=== PATIENT | male | born 1960 | race Caucasian/White ===

== ENCOUNTER → 2020-03-24 06:51 | Outpatient (CLI) | payer MEDICAID, SELFPAY ==
[2020-03-24 07:08] LABS: Hematocrit 49.9 % (40-54); Hemoglobin 16.3 g/dL (13.0-16.5); Mean Corp Hgb Conc 32.7 g/dL (32-36); Mean Corpuscular Volume 94.9 fL (80-94); Mean Platelet Vol. 9.3 fl (6.2-12.0); Platelet Count 230 K/mm3 (150-450); RBC Distribution Width CV 13.2 % (11.6-14.6); RBC Distribution Width SD 45.5 fl (35.1-43.9); Red Blood Count 5.26 M/mm3 (4.6-6.2); White Blood Count 8.5 K/mm3 (4.4-11.0)
[2020-03-24 07:36] LABS: AST(SGOT) 17 U/L (15-37); Alanine Aminotransfer ALT/SGPT 24 U/L (16-61); Albumin, Serum 3.6 g/dL (3.2-5.0); Alkaline Phosphatase 103 U/L (45-117); Anion Gap 4 (5-15); BUN 27 mg/dL (7-18); BUN/Creat Ratio 19.7 RATIO (10-20); Calcium,Total 8.8 mg/dL (8.5-10.1); Chloride 105 mmol/L (98-107); Cholesterol 177 mg/dL (200); Creatinine, Serum 1.37 mg/dL (0.70-1.30); EST Glomerular Filtration Rate 56 mL/min (>60); Est Glom Filt Rate - Afr Amer 68 mL/min (>60); Globulin 3.7 g/dL (2.2-4.2); Glucose 91 mg/dL (74-106); High Density Lipoprotein 56 mg/dL; Potassium 4.2 mmol/L (3.5-5.1); Protein, Total 7.3 g/dL (6.4-8.2); Sodium Level 138 mmol/L (136-145); Triglycerides 154 mg/dL; Very Low Density Lipoprotein 31 mg/dL (5-40)
== END ==
PROVIDERS: PCP Family Medicine; Referring Provider Nurse Practitioner Family; Visit Provider Nurse Practitioner Family
DX: I25.10 Atherosclerotic heart disease of native coronary artery without angina pectoris (principal); E78.2 Mixed hyperlipidemia; Z72.0 Tobacco use
CPT/HCPCS: 36415; 80053; 80061; 85027

== ENCOUNTER → 2020-04-03 09:22 | Outpatient (CLI) | payer MEDICAID, SELFPAY ==
[2016-01-11 15:18] VITALS: BMI 29.5
[2020-04-03 10:19] LABS: Erythrocyte Sedimentation Rate 11 mm/hr (0-20)
[2020-04-03 10:25] LABS: CRP 8.68 mg/L (0.0-3.0); Rheumatoid Factor < 10.0 IU/mL (<15)
[2020-04-05 08:57] LABS: CCP IgG Antibodies 5 units (0-19)
== END ==
PROVIDERS: PCP Family Medicine
DX: M06.4 Inflammatory polyarthropathy (principal)
CPT/HCPCS: 36415; 85652; 86140; 86200; 86431

== ENCOUNTER 2020-08-26 18:57 | Emergency (ER) | payer MEDICAID, SELFPAY ==
[2020-08-26 18:58] VITALS: BP 138/85; PULSE 98; RESP 18; TEMP 36.8; O2SAT 97; BMI 30.5
--- NOTE | 2020-08-26 19:44 | EDS_ITS ---
HPI History of Present Illness Chief Complaint: Other, Pain/Inj Detail of Chief Complaint: Multiple bee stings with allergic reaction that occurred yesterday. Informant: patient and spouse/S.O. Onset/Context/Timing Onset: Yesterday Context: Sudden Onset Timing: Continuous Current Severity: Mild Maximum Severity: Mild Narrative Narrative: 59-year-old male history of cardiac disease with cardiac stents in hypertension. Patient was stung by multiple bees yesterday on the back of his scalp, neck and left arm. He had allergic reaction since that time with swelling and itching. No trouble breathing or swallowing. No lip or tongue swelling. This occurred yesterday around 8 AM. Prior similar symptoms: Yes Recent Illness/Hospitalization: No PFSH PFSH Medical History Arthritis High cholesterol HTN (hypertension) Home Medications aspirin 81 mg PO DAILY 01/11/16 [History Last Taken 01/11/16 08:00] lisinopril 10 mg PO DAILY 01/11/16 [History Last Taken 01/11/16 08:00] hydroxychloroquine 200 mg PO DAILY 08/26/20 [History Last Taken Unknown] lovastatin 40 mg PO DAILY 08/26/20 [History Last Taken Unknown] prednisone 2.5 mg PO DAILY 08/26/20 [History Last Taken Unknown] prednisone 40 mg PO DAILY 5 Days #10 tab 08/26/20 [Rx Last Taken Unknown] Allergy/AdvReac Type Severity Reaction Status Date / Time No Known Allergies Allergy Verified 08/26/20 18:59 Social History Smoking Status: Current every day smoker tobacco type: cigarettes ROS ROS ED ROS Narrative Denies any recent illness. Review of Systems ROS Unobtainable: Denies due to encephalopathy Constitutional Constitutional ED: Denies chills or fever(s) Eyes Eyes: Denies change in vision ENT ENT ED: Denies ear pain or sore throat Cardiovascular Cardiovascular: Denies chest pain Respiratory/Chest Respiratory/Chest: Denies cough or dyspnea Gastrointestinal Gastrointestinal: Denies abdominal pain, diarrhea, nausea or vomiting Genitourinary Genitourinary ED: Denies dysuria Musculoskeletal Musculoskeletal: Denies myalgias Integumentary Reports rash Neurologic Neurologic: Denies headache(s) Psychiatric Psychiatric: Denies depression Endocrine Endocrinology: Denies polyuria Allergic/Immunologic Allergic/Immunologic ED: Denies urticaria EXAM Physical Exam Narrative Exam Narrative: Well-appearing 59-year-old male no acute distress vital signs stable afebrile. HEENT exam shows a local allergic rash no bee sting posterior scalp and base of his neck. With redness and blistering. No infection. Also on the posterior aspect of his left arm. Tongue and lips are unremarkable. No trouble swallowing or breathing. Lungs are clear to auscultation bilaterally. No wheezing. No distress. Heart regular rate and rhythm. Abdomen soft and nontender. Otherwise exam unremarkable. Const Vital Signs: 08/26/20 18:58 Temperature 98.2 F Temperature Source Temporal Pulse Rate 98 Respiratory Rate 18 Blood Pressure 138/85 H Blood Pressure Mean 102 Pulse Ox 97 Oxygen Delivery Method Room Air Positive well nourished and well developed General Appearance ED: well developed and NAD HEENT Reports moist mucous membranes Negative for trauma or tenderness Eyes PERRL and EOMs intact bilaterally Neck no lymphadenopathy, supple and no JVD Chest Wall inspection of chest normal and palpation of chest normal Resp normal respiratory effort and clear to auscultation bilaterally Auscultation: Negative for wheezes Cardio regular rate, regular rhythm, S1 normal heart sound, S2 normal heart sound and no murmurs GI normal to inspection, nondistended, normoactive bowel sounds, non-tender, non- distended and no masses Auscultation: normoactive bowel sounds Palpation: soft Back/Spine no CVA tenderness Extremity normal to inspection Extremity Narrative: Normal inspection with normal range of motion except low allergic reaction to the posterior tricep upper arm area from bee stings. Consistent with local allergic reaction. General Extremety ED: Yes edema General Extremity: edema Neuro oriented x3 Sensorium / Orientation: alert Motor Exam: strength 5/5 throughout Psych mental status grossly normal Skin no wounds Rashes: rashes noted MDM MDM MDM Narrative Medical decision making narrative: Patient with multiple bee stings with local allergic reactions. He will be treated with prednisone. And Benadryl as needed. Discharge Plan Triage Chief Complaint: Other, Pain/Inj ED Provider: Rd Barrientos Dx/Rx/DC Orders Clinical Impression: Allergic reaction to bee sting Instructions: ED BEE STING General Allergic Rxn Prescriptions: New prednisone 20 mg tablet 40 mg PO DAILY 5 Days Qty: 10 RF: 0 No Action aspirin 81 MG tablet 81 mg PO DAILY RF: 0 lisinopril 10 MG tablet 10 mg PO DAILY RF: 0 lovastatin 40 mg tablet 40 mg PO DAILY RF: 0 hydroxychloroquine 200 mg tablet 200 mg PO DAILY RF: 0 prednisone 2.5 mg tablet 2.5 mg PO DAILY RF: 0 Primary Care Provider: Evon Ochoa Referrals: Evon Ochoa, [Primary Care Provider] - 1 Week if not improving Activity Restrictions/Additional Instructions: Ice to the area. Elevate left arm to decrease swelling. Prednisone 40 g a day for the next 5 days. Benadryl as needed for itching. This should get better as the reaction resolved and the swelling goes down. Follow-up if getting worse. Disposition Disposition: Home, Self Care
[2020-08-26] MEDS: predniSONE 20 MG Tablet 40 MG PO (19:53)
== END 2020-08-26 20:00 | disposition home or self-care (01) ==
PROVIDERS: Emergency Provider Emergency Medicine; PCP Family Medicine
DX: T63.441A Toxic effect of venom of bees, accidental (unintentional), initial encounter (principal); F17.210 Nicotine dependence, cigarettes, uncomplicated; E78.00 Pure hypercholesterolemia, unspecified; I10 Essential (primary) hypertension; M19.90 Unspecified osteoarthritis, unspecified site; Z79.82 Long term (current) use of aspirin; Z79.52 Long term (current) use of systemic steroids; Z95.5 Presence of coronary angioplasty implant and graft; Z79.899 Other long term (current) drug therapy
CPT/HCPCS: 99283

== ENCOUNTER 2021-03-09 09:03 | Outpatient (CLI) | payer MEDICAID, SELFPAY ==
[2021-03-09 09:46] LABS: Hemoglobin 16.3 g/dL (13.0-16.5); Mean Corp Hgb Conc 32.6 g/dL (32-36); Mean Corpuscular Hgb 30.1 pg (27.0-32.0); Mean Corpuscular Volume 92.4 fL (80-94); Mean Platelet Vol. 9.6 fl (6.2-12.0); Platelet Count 234 K/mm3 (150-450); RBC Distribution Width CV 12.9 % (11.6-14.6); RBC Distribution Width SD 43.7 fl (35.1-43.9); Red Blood Count 5.41 M/mm3 (4.6-6.2); White Blood Count 7.5 K/mm3 (4.4-11.0)
[2021-03-09 10:26] LABS: AST(SGOT) 16 U/L (15-37); Alanine Aminotransfer ALT/SGPT 28 U/L (16-61); Albumin, Serum 3.6 g/dL (3.2-5.0); Alkaline Phosphatase 110 U/L (45-117); Anion Gap 3 (5-15); BUN 20 mg/dL (7-18); BUN/Creat Ratio 17.1 RATIO (10-20); Calcium,Total 8.9 mg/dL (8.5-10.1); Chloride 109 mmol/L (98-107); Cholesterol 162 mg/dL (200); Creatinine, Serum 1.17 mg/dL (0.70-1.30); EST Glomerular Filtration Rate 67 mL/min (>60); Est Glom Filt Rate - Afr Amer 81 mL/min (>60); Globulin 3.6 g/dL (2.2-4.2); Glucose 90 mg/dL (74-106); High Density Lipoprotein 54 mg/dL; Potassium 4.6 mmol/L (3.5-5.1); Protein, Total 7.2 g/dL (6.4-8.2); Sodium Level 139 mmol/L (136-145); Triglycerides 102 mg/dL; Very Low Density Lipoprotein 20 mg/dL (5-40)
== END 2021-03-09 23:59 | disposition short-term general hospital (02) ==
LOC: LAB 09:06
PROVIDERS: PCP Family Medicine; Visit Provider Nurse Practitioner Family
DX: I25.10 Atherosclerotic heart disease of native coronary artery without angina pectoris (principal); E78.5 Hyperlipidemia, unspecified
CPT/HCPCS: 36415; 80053; 80061; 85027

== ENCOUNTER → 2022-05-03 | Outpatient (CLI) | payer MEDICAID, SELFPAY ==
--- NOTE | 2022-05-03 10:22 | NEURO_ITS ---
NCS and/or EMG Patient Report Ordering Doctor: Arjun Prescott DATE OF SERVICE: 05/03/22 Indication: Approximately 12 years of intermittent sensory changes in the first three digits of both hands (right greater than left). He states that he will wake up from sleep with his hands feeling swollen. Findings: Nerve conduction studies were performed in the right and left upper extremities. The right median motor study recording the abductor pollicis brevis showed a normal amplitude, prolonged distal latency and borderline conduction velocity. The right ulnar motor study recording the abductor digiti minimi showed a normal amplitude, normal distal latency and normal conduction velocity. No conduction block or focal slowing was present across the elbow. The right median sensory response recording digit two showed a borderline amplitude, normal latency and mildly slowed conduction velocity. The right ulnar sensory response recording digit five showed a normal amplitude, prolonged latency and slowed conduction velocity. The right radial sensory response recording over the extensor snuff box showed a borderline amplitude, normal latency and mildly slowed conduction velocity. The left median motor study recording the abductor pollicis brevis showed a normal amplitude, normal distal latency and slowed conduction velocity. The left ulnar motor study recording the abductor digiti minimi showed a normal amplitude, distal latency and conduction velocity. No conduction block or focal slowing was present across the elbow. The left median sensory response recording digit two showed a borderline amplitude, normal latency and borderline conduction velocity. The left ulnar sensory response recording digit five showed a normal amplitude, prolonged latency and slowed conduction velocity. The left radial sensory response recording over the extensor snuff box showed a borderline amplitude, normal latency and mildly slowed conduction velocity. Right median-ulnar lumbrical / interosseous motor latencies showed a prolonged median latency compared to the ulnar. Left median-ulnar lumbrical / interosseous motor latencies showed a prolonged median latency compared to the ulnar. Needle EMG of the right upper extremity and cervical paraspinal muscles was performed. No denervation was seen in any muscle. All motor unit morphology, activation and recruitment patterns were normal. Needle EMG of the left upper extremity was omitted given the paucity of findings in the more symptomatic limb. Impression: This is an abnormal and complex study. There is electrophysiologic evidence of mild median neuropathy across the right wrist. The pathophysiology is demyelinating. This finding is compatible with the clinical diagnosis of carpal tunnel syndrome. There were borderline changes on the left only by internal comparison studies. In addition, the prolonged ulnar sensory responses across the risk are suggestive, but not diagnostic of impingement at Guyon's canal. This should be interpreted with caution as it would not be expected to produce the patient's current complaints. 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 This possibility was not explored further as it was not the indication for the study. Gurinder Baugh D.O. Multi Select Codes Neurology Neurology Interp Codes: 31614-64 Musc test done w/n test comp (interp) and 21336-06 [facility] cnd test 13/> studies (interp)
== END | disposition home or self-care (01) ==
LOC: PSN 08:56
PROVIDERS: PCP Family Medicine
DX: G56.03 Carpal tunnel syndrome, bilateral upper limbs (principal)
CPT/HCPCS: 95886; 95913

== ENCOUNTER 2022-05-12 09:51 | Day surgery (SDC) | payer MEDICAID, SELFPAY ==
--- NOTE | 2022-05-12 10:00 | HP.PCM_ITS ---
HPI - General General Date of Admission: 05/12/22 Date of Service: 05/12/22 Chief Complaint: Screening colonoscopy HPI Narrative ANI PENNINGTON, is a 61 M who presents today for screening colonoscopy. He has not had a colonoscopy in the past. He has a past medical history of CAD, dyslipidemia, hypertension and tobacco dependence. He is not having any chest pain or shortness of breath. He denied of any nausea vomit diarrhea. He denied of any weakness. Overall he is in very good health. All 16 review of systems are negative except as per positive mentioned HPI. [facility] Medical History Acute chest pain Arthritis Back pain Cardiology follow-up encounter Easy bruising Excessive bleeding High cholesterol History of echocardiogram History of heart attack History of steroid therapy History of stress test HTN (hypertension) Smoker Wears dentures Wears glasses Home Medications aspirin 81 mg tablet,delayed release 81 mg PO DAILY 01/11/16 [History Last Taken 01/11/16 08:00] lisinopril 10 mg tablet 10 mg PO DAILY 01/11/16 [History Last Taken 01/11/16 08:00] hydroxychloroquine 200 mg tablet 200 mg PO BID 08/26/20 [History Last Taken Unknown] lovastatin 40 mg tablet 40 mg PO DAILY 08/26/20 [History Last Taken Unknown] prednisone 2.5 mg tablet 2.5 mg PO DAILY 08/26/20 [History Last Taken Unknown] duloxetine 60 mg capsule,delayed release (Cymbalta) 60 mg PO DAILY 02/23/22 [History Last Taken Unknown] multivitamin 1 tab PO DAILY 02/23/22 [History Last Taken Unknown] Allergy/AdvReac Type Severity Reaction Status Date / Time No Known Allergies Allergy Verified 05/12/22 10:03 Surgical History History of cardiac catheterization History of heart artery stent Hx of surgical amputation of finger Stented coronary artery Social History (Updated 02/23/22 @ 08:49 by Jessie Ryan) household members: spouse current occupational status: employed Smoking Status: Current every day smoker tobacco type: cigars ROS Review of Systems ROS Unobtainable: other Constitutional Constitutional: Denies fatigue, fever(s), poor appetite, weight gain or weight loss ENT HEENT: Denies mouth lesions Cardiovascular Cardiovascular: Denies abdominal bloating, abdominal edema or abdominal pain Respiratory/Chest Respiratory/Chest: Denies change in mental status, change in phlegm color, chest congestion or chest tightness Gastrointestinal Gastrointestinal: Denies belching, bloating, change in bowel habits, change in stool character, chewing difficulty, coffee ground emesis, constipation, cramping, diarrhea, dyspepsia, dysphagia, early satiety, excessive flatus, fecal incontinence, heartburn, hematemesis, hematochezia, hemorrhoids, loose stools, melena, nausea, odynophagia, rectal bleeding, tenesmus, vomiting or weight changes Genitourinary Genitourinary: Denies abdominal discomfort, burning urination or itching Musculoskeletal Musculoskeletal: Reports as per HPI; Denies muscle weakness or myalgias Integumentary Integumentary: Denies jaundice Neurologic Neurologic: Denies lack of coordination or weakness Psychiatric Psychiatric: Denies confusion, depression, memory loss, mood swings, paranoia or suicidal ideation Endocrine Endocrinology: Denies systems reviewed and no addt'l complaints, except as documented Hematologic/Lymphatic Hematologic/Lymphatic: Denies anemia, easy bleeding, easy bruising or lymphadenopathy Allergic/Immunologic Allergic/Immunologic: Denies systems reviewed and no addt'l complaints, except as documented Vital Signs Vital Signs Vital Signs: Weight Weight: 194 lb 0.108 oz Body Mass Index (BMI) 29.5 Physical Exam Const alert General Appearance: cooperative Orientation / Consciousness: oriented to person HEENT hearing grossly normal bilaterally Head and Scalp: normal to inspection Face and Sinus: face symmetric Nose: external nose normal Mouth: oral and palatal mucosa normal Eyes conjunctivae normal General Eye: normal appearance of both eyes Neck full ROM General: normal visual inspection Lymph Lymphatic: no lymphadenopathy noted Chest inspection of chest normal and palpation of chest normal Chest: symmetrical chest wall rise Resp normal respiratory effort Effort and Inspection: able to speak in complete sentences Cardio regular rate GI non-distended Percussion: normal to percussion Rectal Exam: deferred Neuro Speech: speech normal Gait (Neuro): normal gait Assessment & Plan Assessment/Plan (1) Encounter for screening for malignant neoplasm of colon: PLAN: He will undergo screening colonoscopy. He was explained alternatives, risk, benefits include not withstanding bleeding, infection, sepsis, perforation, need for emergent urgent . Have an ASA of 1.
[2022-05-12 10:19] VITALS: BP 123/74; PULSE 91; RESP 16; TEMP 36.3; O2SAT 96; BMI 29.5
[2022-05-12] MEDS: Lactated Ringers 1,000 ML 15 ML IV (10:19)
--- NOTE | 2022-05-12 11:15 | COLBX_PTH ---
PATIENT: ANI PENNINGTON LOC: EN U#:[id number] AGE/SX: 61/M ROOM: RE05/12/[address]: Dr. Gurdeep Chao DO : 1960 BED: DIS: 05/12/2022 SPEC #: [id number] RECD: 05/12/22 13:47 STATUS: JAMISON REDiann #: [id number] JALEESA: 05/12/22 11:[address]: Gurdeep Chao DEPT: SURGICAL PATHOLOGY RECD BY: Aleta Campbell ENTERED: 05/13/22 10:42 SP TYPE: COLON BX MARYANNE DR: DO Kim Sanford Tissues: A - Sigmoid colon biopsy B - Descending colon Procedures: Surgery Specimen Level IV HEADER OPERATION: Colonoscopy ? open access (MAC), biopsies, polypectomy PRE-OP DIAGNOSIS: Screening TISSUE SUBMITTED: A ? Sigmoid polyp, B ? Descending polyp biopsy MICROSCOPIC DIAGNOSIS A. Sigmoid polyp, polypectomy: Fragments of tubular adenoma. B. Descending colon polyp, biopsy: Fragments of tubular adenoma. SJ:teo 05/14/2022 MICROSCOPIC DESCRIPTION Slides are reviewed. GROSS DESCRIPTION A - Received in fixative is one container labeled with the patient's name and designated sigmoid polyp. The specimen consists of two irregular fragments of light chase soft tissue that in aggregate measure 0.8 x 0.6 x 0.2 cm. The specimen is totally submitted in one cassette. B - Received in fixative is one container labeled with the patient's name and designated descending polyp biopsy. The specimen consists of two irregular fragments of light chase soft tissue that in aggregate measure 0.8 x 0.5 x 0.1 cm. The specimen is totally submitted in one cassette. / AM:teo 05/13/2022 TC:1 CPT: 25782 x2
[2022-05-12 12:25] VITALS: BP 107/70; BP 123/74; PULSE 81; RESP 16; TEMP 36.2; O2SAT 98
--- NOTE | 2022-05-12 12:25 | OP.COLON_ITS ---
Patient Name: Miguel Valentine Procedure Date: 05/12/2022 11:57 AM Date of : 1960 Age: 61 Procedure: Colonoscopy Indications: Screening for colorectal malignant neoplasm Providers: Gurdeep Chao DO Medicines: Monitored Anesthesia Care Patient Profile: This is a 61 year old male. Refer to note in patient chart for documentation of history and physical. Last Colonoscopy: date unknown. Unable to locate last colonoscopy report. Complications: No immediate complications. Procedure: Pre-Anesthesia Assessment: - Prior to the procedure, a History and Physical was performed, and patient medications and allergies were reviewed. The risks and benefits of the procedure and the sedation options and risks were discussed with the patient. All questions were answered and informed consent was obtained. Patient identification and proposed procedure were verified by the physician. Mental Status Examination: normal. Prophylactic Antibiotics: The patient does not require prophylactic antibiotics. Prior Anticoagulants: The patient has taken no previous anticoagulant or antiplatelet agents. After reviewing the risks and benefits, the patient was deemed in satisfactory condition to undergo the procedure. The anesthesia plan was to use minimal sedation / analgesia (anxiolysis). Immediately prior to administration of medications, the patient was re-assessed for adequacy to receive sedatives. The heart rate, respiratory rate, oxygen saturations, blood pressure, adequacy of pulmonary ventilation, and response to care were monitored throughout the procedure. The physical status of the patient was re-assessed after the procedure. After I obtained informed consent, the scope was passed under direct vision. Throughout the procedure, the patient's blood pressure, pulse, and oxygen saturations were monitored continuously. The Colonoscope was introduced through the anus and advanced to the terminal ileum. Scope In: 12:07:50 PM Scope Withdrawal Time 0 hours 7 minutes 28 seconds Scope Out: 12:20:19 PM Total Procedure Duration Time 0 hours 12 minutes 29 seconds Findings: The perianal and digital rectal examinations were normal. Five sessile polyps were found in the sigmoid colon and descending colon. The polyps were 1 to 2 mm in size. These polyps were removed with a hot snare. Resection and retrieval were complete. Verification of patient identification for the specimen was done. Estimated blood loss was minimal. Multiple small and large-mouthed diverticula were found in the recto-sigmoid colon and sigmoid colon. Impression: - Three 1 to 2 mm polyps in the sigmoid colon and in the descending colon, removed with a hot snare. Resected and retrieved. - Diverticulosis in the recto-sigmoid colon and in the sigmoid colon. Recommendation: - Discharge patient to home. - Resume previous diet. - Continue present medications. - Await pathology results. - Repeat colonoscopy in 3 years for surveillance. Procedure Code(s): --- Professional --- 70864, Colonoscopy, flexible; with removal of tumor(s), polyp(s), or other lesion(s) by snare technique CPT copyright 2017 [employer]. All rights reserved. The codes documented in this report are preliminary and upon iron launder operator review may be revised to meet current compliance requirements. Gurdeep Chao DO 05/12/2022 12:24:57 PM This report has been signed electronically. Number of Addenda: 0 Note Initiated On: 05/12/2022 11:57 AM
--- NOTE | 2022-05-12 12:25 | OP.CCLET_ITS ---
05/12/2022 Evon Waller Do Re : Colonoscopy procedure for Miguel Valentine Dear Sridhar This procedure was performed on Thursday, May 12, 2022. My impressions and recommendations are as follows: Impressions : - Three 1 to 2 mm polyps in the sigmoid colon and in the descending colon, removed with a hot snare. Resected and retrieved. - Diverticulosis in the recto-sigmoid colon and in the sigmoid colon. Recommendations : - Discharge patient to home. - Resume previous diet. - Continue present medications. - Await pathology results. - Repeat colonoscopy in 3 years for surveillance. My findings are described in the full procedure note, which is enclosed. If I can be of further assistance, please feel free to contact me at . Sincerely, Gurdeep Chao, 05/12/2022 12:24:57 PM This report has been signed electronically.
[2022-05-12 12:30] VITALS: BP 123/74; BP 139/80; PULSE 80; RESP 16; O2SAT 97
[2022-05-12 12:35] VITALS: BP 123/74; BP 127/76; PULSE 77; RESP 16; O2SAT 98
[2022-05-12 12:40] VITALS: BP 123/74; BP 152/77; PULSE 77; RESP 16; TEMP 36.2; O2SAT 99
[2022-05-12 13:00] VITALS: BP 123/74
== END 2022-05-12 13:10 | disposition home or self-care (01) ==
LOC: EN 09:51 → AC 09:54
PROVIDERS: PCP Family Medicine; Visit Provider Internal Medicine Gastroenterology
PROC: 0DJD8ZZ Inspection of Lower Intestinal Tract, Via Natural or Artificial Opening Endoscopic (ICD-10-PCS; CPT 45378; principal; 2022-05-12 11:10)
DX: Z12.11 Encounter for screening for malignant neoplasm of colon (principal); D12.4 Benign neoplasm of descending colon; D12.5 Benign neoplasm of sigmoid colon; K57.30 Diverticulosis of large intestine without perforation or abscess without bleeding; I10 Essential (primary) hypertension; E78.00 Pure hypercholesterolemia, unspecified; F17.290 Nicotine dependence, other tobacco product, uncomplicated; Z95.5 Presence of coronary angioplasty implant and graft; Z79.82 Long term (current) use of aspirin; Z79.899 Other long term (current) drug therapy
CPT/HCPCS: 45385; 88305; J7120; J2405

== ENCOUNTER → 2022-11-20 | Outpatient (CLI) | payer MEDICAID, SELFPAY ==
[2022-11-20 08:00] LABS: Absolute Lymphocyte Count 1.28 X10^3/uL (0.83-4.51); Absolute Neutrophil Count 4.8 X10^3/uL (2.0-7.7); Basophil# 0.06 X10^3/uL; Basophil% 0.8 % (0-1); Eosinophil# 0.27 X10^3/uL; Eosinophils% 3.8 % (0-5); Hematocrit 50.7 % (40-54); Hemoglobin 16.4 g/dL (13.0-16.5); Lymphocyte # 1.28 X10^3/ul (0.83-4.51); Mean Corp Hgb Conc 32.3 g/dL (32-36); Mean Corpuscular Hgb 31.3 pg (27.0-32.0); Mean Corpuscular Volume 96.8 fL (80-94); Mean Platelet Vol. 9.5 fl (6.2-12.0); Monocyte# 0.65 X10^3/uL; Monocyte% 9.1 % (0-10); NRBC Flagged by Analyzer 0 % (0-5); Neutrophil # 4.84 X10^3/uL (2.7-7.7); Neutrophil % 67.9 % (47-70); Platelet Count 237 K/mm3 (150-450); RBC Distribution Width CV 12.8 % (11.6-14.6); Red Blood Count 5.24 M/mm3 (4.6-6.2); White Blood Count 7.1 K/mm3 (4.4-11.0)
[2022-11-20 08:28] LABS: AST(SGOT) 12 U/L (15-37); Alanine Aminotransfer ALT/SGPT 22 U/L (16-61); Albumin, Serum 3.6 g/dL (3.2-5.0); Alkaline Phosphatase 101 U/L (45-117); Anion Gap 2 (5-15); BUN 12 mg/dL (7-18); BUN/Creat Ratio 10.3 RATIO (10-20); Calcium,Total 8.9 mg/dL (8.5-10.1); Chloride 107 mmol/L (98-107); Cholesterol 161 mg/dL (200); Creatinine, Serum 1.17 mg/dL (0.70-1.30); EST Glomerular Filtration Rate 67 mL/min (>60); Est Glom Filt Rate - Afr Amer 81 mL/min (>60); Globulin 3.5 g/dL (2.2-4.2); Glucose 98 mg/dL (74-106); High Density Lipoprotein 60 mg/dL; PSA,Total - Annual Screen 1.78 ng/mL (0.00-4.00); Potassium 5.1 mmol/L (3.5-5.1); Protein, Total 7.1 g/dL (6.4-8.2); Sodium Level 138 mmol/L (136-145); Thyroid Stim Hormone (TSH) 1.72 uIU/mL (0.358-3.74); Triglycerides 93 mg/dL; Very Low Density Lipoprotein 19 mg/dL (5-40)
[2022-11-26 10:09] LABS: Testosterone, % Free 2.47 % (1.50-4.20); Testosterone, Free 15.54 ng/dL (5.00-21.00); Testosterone, Total 629 ng/dL (264-916)
== END | disposition home or self-care (01) ==
PROVIDERS: PCP Family Medicine; Referring Provider Nurse Practitioner Family; Visit Provider Nurse Practitioner Family
DX: I10 Essential (primary) hypertension (principal); N52.9 Male erectile dysfunction, unspecified; Z12.5 Encounter for screening for malignant neoplasm of prostate
CPT/HCPCS: 36415; 80053; 80061; 84153; 84402; 84403; 84443; 85025; G0103

== ENCOUNTER → 2023-04-29 | Outpatient (CLI) | payer MEDICAID, SELFPAY ==
--- OUTSIDE RECORDS SUMMARY | 2023-04-29 07:39 | XMS RPT_ITS | CCD ---
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 Primary Care Unavailable ALFONZO NO Attending Unavailable LUDMILA [place] JR. Primary Care Unavailable RIZWANA MAHMOOD Attending Unavailable RIZWANA MAHMOOD Referring Unavailable IMCA Primary Care Unavailable RIZWANA MAHMOOD Attending Unavailable [facility] Referring Unavailable [facility]CA Primary Care Unavailable RIZWANA MAHMOOD Attending Unavailable [facility] Referring Unavailable [facility] Primary Care Unavailable Beth Guzman Primary Care Provider Beth Guzman Primary Care Provider Beth Guzman DO Primary Care Provider Beth Guzman DO Primary Care Provider Beth Guzman DO Primary Care Provider Beth Guzman DO Primary Care Provider Beth Guzman DO Primary Care Provider BETH GUZMAN Primary Care Unavailable MARIYA SARKAR Attending Unavailable Medications Current Medications Medication Drug Class(es) Dates Sig (Normalized) Sig (Original) DULoxetine 60 mg delayed release oral capsule (20 sources) Serotonin and Norepinephrine Reuptake Inhibitor Start: 07-01-2021 End: 06-18-2023 take 1 capsule by mouth once daily DULoxetine (CYMBALTA) 60 mg capsule Indications: Generalized osteoarthrosis Take 1 capsule by mouth once daily. 90 capsule 1 12/20/2022 06/18/2023 Active Completed/Discontinued Medications Medication Drug Class(es) Dates Sig (Normalized) Sig (Original) alendronic acid 35 mg oral tablet (14 sources) Bisphosphonate Start: 12-29-2020 End: 01-06-2022 take 1 tablet by mouth every week in the morning alendronate (FOSAMAX) 35 mg tablet Take 1 tablet by mouth one time a week. In AM with cup of water on empty stomach. Nothing else by mouth and stay upright for 30 min. 12 tablet 0 11/23/2021 01/06/2022 Discontinued (Course of therapy completed) Problems Active Problems Problem Classification Problem Date Documented Date Episodic/Chronic Essential hypertension (20 sources) Essential hypertension; Translations: [Essential (primary) hypertension] Onset: 12-27-2016 12-27-2016 Chronic Osteoarthritis (20 sources) Primary gonarthrosis, bilateral; Translations: [Bilateral primary osteoarthritis of knee] Onset: 12-27-2016 12-27-2016 Chronic Other aftercare (2 sources) Drug therapy finding; Translations: [Other alf (current) drug therapy] Onset: 04-26-2023 04-26-2023 Episodic Other aftercare (1 source) Other alf (current) drug therapy; Translations: [Long-term use of Plaquenil] Onset: 04-26-2023 Episodic Other nervous system disorders (1 source) Bilateral carpal tunnel syndrome; Translations: [Carpal tunnel syndrome, bilateral upper limbs] Chronic Rheumatoid arthritis and related disease (20 sources) Inflammatory polyarthropathy; Translations: [Inflammatory polyarthropathy] Onset: 12-27-2016 12-27-2016 Chronic Unclassified (2 sources) NO SHOW Past or Other Problems Problem Classification Problem Date Documented Da te Episodic/Chronic Spondylosis; intervertebral disc disorders; other back problems (20 sources) Chronic neck pain; Translations: [Chronic low back pain] Onset: 12-27-2016 12-27-2016 Episodic Results Test Name Value Interpretation Reference Range Facil ity Vital Signs Date Time Vital Sign Value Performing Clinician Jl coughlin 04-26-2023 10:08-0400 Body weight 92.99 kg [employer] Work Phone: [facility] 04-26-2023 10:08-0400 Diastolic blood pressure 81 mm[Hg] [employer] Work Phone: [facility] 04-26-2023 10:08-0400 Heart rate 106 /min Mariya [place] PA-C Work Phone: [facility] 04-26-2023 10:08-0400 Systolic blood pressure 121 mm[Hg] Mariya Antonina PA-C Work Phone: [facility] 01-06-2022 11:30-0500 Body height 172.7 cm Marko Mahmood MD Work Phone: [facility] 01-06-2022 11:30-0500 Body temperature 98.1 [degF] Marko Mahmood MD Work Phone: [facility] 01-06-2022 11:30-0500 Body weight 86.64 kg Marko Mahmood MD Work Phone: [facility] 01-06-2022 11:30-0500 Diastolic blood pressure 87 mm[Hg] Marko Mahmood MD Work Phone: [facility] 01-06-2022 11:30-0500 Heart rate 94 /min Marko Mahmood MD Work Phone: [facility] 01-06-2022 11:30-0500 Systolic blood pressure 122 mm[Hg] Marko Mahmood MD Work Phone: [facility] 07-01-2021 10:55-0400 Body height 172.7 cm Marko Mahmood MD Work Phone: [facility] 07-01-2021 10:55-0400 Body temperature 98.2 [degF] Marko Mahmood MD Work Phone: [facility] 07-01-2021 10:55-0400 Body weight 92.53 kg Marko Mahmood MD Work Phone: [facility] 07-01-2021 10:55-0400 Diastolic blood pressure 68 mm[Hg] Marko Mahmood MD Work Phone: [facility] 07-01-2021 10:55-0400 Heart rate 86 /min Marko Mahmood MD Work Phone: [facility] 07-01-2021 10:55-0400 Systolic blood pressure 116 mm[Hg] Marko Mahmood MD Work Phone: [facility] 12-29-2020 11:07-0500 Body height 172.7 cm Marko Mahmood MD Work Phone: [facility] 12-29-2020 11:07-0500 Body temperature 98.2 [degF] Marko Mahmood MD Work Phone: [facility] 12-29-2020 11:07-0500 Body weight 88.13 kg Marko Mahmood MD Work Phone: [facility] 12-29-2020 11:07-0500 Diastolic blood pressure 66 mm[Hg] Marko Mahmood MD Work Phone: [facility] 12-29-2020 11:07-0500 Heart rate 94 /min Marko Mahmood MD Work Phone: [facility] 12-29-2020 11:07-0500 Systolic blood pressure 124 mm[Hg] Marko Mahmood MD Work Phone: [facility] 03-24-2020 11:08-0500 Body Temperature 98.49 [degF] Marko Mahmood [facility] 03-24-2020 11:08-0500 Body weight 92.99 kg Marko Mahmood [facility] 03-24-2020 11:08-0500 BP Diastolic 78 mm[Hg] Marko Mahmood [facility] 03-24-2020 11:08-0500 BP Systolic 107 mm[Hg] Marko Mahmood [facility] 03-24-2020 11:08-0500 Height 172.7 cm Marko Mahmood [facility] 03-24-2020 11:08-0500 Pulse (Heart Rate) 106 /min Marko Mahmood [facility] Encounters Encounter Date Encounter Type Care Provider Facility Start: 04-26-2023 End: 04-26-2023 ambulatory BETH GUZMAN Facility:[facility] Start: 04-26-2023 End: 04-26-2023 Office outpatient visit 25 minutes Mariya Sarkar PA-C Work Phone: [facility] Procedures Date Procedure Procedure Detail Performing Clinician Start: 05-27-2020 EXTERNAL LAB External P fernando Start: 05-27-2009 Lipid 1996 panel - S arnel or Plasma Marko Mahmood MD Work Phone: Plan of Treatment Date Care Activity Detail Author Start: 04-26-2023 End: 07-26-2023 C reactive protein [Mass/volume] in Serum or Plasma C-REACTIVE PROTEIN (CRP) Lab Routine Inflammatory polyarthropathy (HCC) Generalized osteoarthrosis Long-term use of Plaquenil Expected: 04/26/2023, Expires: 07/26/2023 [facility] Work Phone: Payers Date Payer Category Payer Medicaid [id number]. [id number] 2019 Medicaid [id number] 2017 Unknown [id number] 1960 Unknown [id number] 1960 Unknown [id number] 1958 Unknown [id number] 1960 Unknown [id number] 1960 Unknown [id number] Social History Date Type Detail Facility Start: 03-30-2017 End: 03-24-2020 Tobacco smoking status NHIS Current every day smoker [facility] Work Phone: History of tobacco use Cigar Smoker [facility] Start: 03-30-2017 End: 04-26-2023 Cigarettes smoked current (pack per day) - Reported [facility] Start: 1960 Sex Assigned At Not on file [facility] Start: 12-27-2016 End: 03-24-2020 Tobacco use and exposure Never used [facility] Start: 03-24-2020 End: 04-26-2023 Alcohol intake Current drinker of alcohol (finding) [facility] Start: 06-21-2021 End: 01-06-2022 Exposure to SARS-CoV-2 (event) Not sure [facility] History of tobacco use Cigarette Smoker [facility] Start: 01-06-2022 Alcohol Comment once a month: beer C [facility] Start: 01-06-2022 End: 04-26-2023 Tobacco use panel [facility] National Score (1-10 0), lower number is lower risk 34 [facility] Clinical Notes 11-11-2020 to 04-26-2023 Patient InstructionsMariya Sarkar PA-C - 04/26/2023 10:12 AM EDTTelephone Encounter - Tamiko Pina MA - 04/21/2023 9:33 AM ESTTelephone Encounter - Linda Bullock MA - 03/28/2023 3:52 PM EST Note Date & Type Note Facility 04-26-2023 Note HNO ID: [id number] Author: MARIYA SARKAR PA-C Service: ? Author Type: Physician Stopper Maker Helper Type: Progress Notes Filed: 04/26/2023 10:24 Note Text: [facility] Mariya Sarkar [address] [place] [address] Subjective Last OV: 01/06/2022 (Dr. Mahmood) HPI: Ani Valentine is a 62 year old male who presents for follow up of inflammatory arthritis. He notes he has been doing well. Would like to come off prednisone. Has not been able to get off work for his appointments. Denies flares of inflammatory arthritis. 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 He has not had any treatment for this. Rheumatologic disease history: First OV date: 12/2016 Diagnosis: Inflammatory arthritis Serologies: RF neg, CCP neg Erosions: none Current therapy: Plaquenil 400 mg daily, prednisone 2.5 mg daily, Cymbalta 60 mg daily Prior therapy: Fosamax Interval Review of Systems CONSTITUTIONAL: Recent Weight change: No Fever: No EENT: Dryness in eyes: No Dryness of mouth: No Oral ulcers: No CARDIOVASCULAR: Pain in chest: No RESPIRATORY: Shortness of breath: No Cough: No GASTROINTESTINAL: Nausea: No Vomiting: No Changes in bowel movements: No Heartburn: No MUSCULOSKELETAL: Per HPI INTEGUMENTARY: Rash: No NEUROLOGICAL SYSTEM: Headaches: No All other ROS reviewed, pertinent positives in HPI No past medical history on file. PAST SURGICAL HISTORY Procedure Laterality Date FINGER SURGERY HX Bilateral KNEE SURGERY HX Bilateral scope TX INGROWN TOENAIL removal History Review: I have reviewed and modified as needed, the following during this visit: Allergies, Past Medical History, Past Surgical History, Past Family History, Past Social History. Physical Exam BP 121/81 Pulse 106 Wt 93 kg (205 lb) BMI 31.17 kg/m? GENERAL: Well appearing, alert, comfortable, in no acute distress, well-hydrated, well nourished. HEENT: Negative for external ears normal. Canals are clear. Eye Exam normal. External nose normal, no nasal ulcer or throat ulcer. NECK: NECK Supple, no adenopathy CARDIAC: regular rate and rhythm, No murmur asculated., and Equal peripheral pulses RESPIRATORY: Lungs clear to auscultation. No wheezing, rhonchi, rales NEURO: Motor and sensory exam normal MOTOR: Normal; including tone, gait, stressed gait, power and coordination. SKIN: Negative for alopecia, skin rash, malar rash, skin lesion, skin ulcer, pits, thickening, color changes, telangiectasias, nail changes, nail ridging, nail pitting, onycholysis MUSCULOSKELETAL: no tenderness or synovitis; left 4th digit amputated distal to the PIP Recent Lab Results: No results found for: WBC , RBC , HB , HCT , PLT No results found for: CREAT , CA , ALKPHOS , AST , ALT Recent Radiology Results: No recent imaging Assessment / Plan: (M06.4) Inflammatory polyarthropathy (HCC) (primary encounter diagnosis) (M15.9) Generalized osteoarthrosis (Z79.899) Long-term use of Plaquenil The patient is doing very well with his current regimen. He would like to discontinue prednisone. Will taper off. Can consider decreasing Plaquenil if he is doing well in 3 months. Patient will contact the office if he would like to decrease the dose at that time. Recent eye exam done. Labs ordered for monitoring for medication toxicity. Patient advised to contact the clinic with questions. 1. Discussed the above in detail with the patient. All questions were answered. 2. Meds: taper off prednisone - every other day x 2 weeks then stop 3. Testing: CBC, CMP, ESR, CRP ordered 4. Contact the clinic with concerns 5. Follow up: [address] Mahmood 6. Compliance with labs and follow ups encouraged Mariya Sarkar PA-C Dr. Mahmood last OV note reviewed: Assessment and Plan First visit 12/2016 Inflammatory polyarthropathy Summer 2016 joint pain started 09/30 RF negative, Uric acid 4.1 mg.dl wbc normal, CMP normal ESR 9 mm cbc normal CRP 1.33 mg/dl normal < 0.80 mg/dl 04/03/2020 ESR 11 crp 8.68 mgL RF CCP negative TREATMENT Prednisone helped a lot given by 60 mg 5 days. 2017, flare 01/17/17 prednisone 30 mg 5 days given ( had knee and ankle pain and swelling) : felt lot better 11/20/2019 pred 2.5 mg 2 pill + fosamax 35 03/24/2020 stop fosamax, cut back on pred to 2.5 mg 03/2020 OFF plaquenil 200 bid every day 12/2016 started, 02/2019 last optha Lot better keep on same, see him back in 6 months. 04/2019 refilll med 12/29/2020 FLARED UP, I think will resume prednisone 2.5 and fosamax ( do not use NSAId on him, coronary artery disease ) 07/01/21 get xr to see if CPPD changes, at present , not clear if RA. But symptoms controlled on current med (( PLANS IS TO NOT STOP MEDICINE TILL HE RETIRES )) (more content not included)... [facility] 04-26-2023 Instructions Mariya Sarkar PA-C - 04/26/2023 10:18 AM EDT Prednisone: 2.5 mg tabs - take 1 tab every other day for 2 weeks, then okay to stop documented in this encounter [facility] 04-26-2023 History of Present illness Narrative Images from the original note were not included. [facility] Mariya Sarkar [address] [place] [address] Subjective Last OV: 01/06/2022 (Dr. Mahmood) HPI: Ani Valentine is a 62 year old male who presents for follow up of inflammatory arthritis. He notes he has been doing well. Would like to come off prednisone. Has not been able to get off work for his appointments. Denies flares of inflammatory arthritis. 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 He has not had any treatment for this. Rheumatologic disease history: First OV date: 12/2016 Diagnosis: Inflammatory arthritis Serologies: RF neg, CCP neg Erosions: none Current therapy: Plaquenil 400 mg daily, prednisone 2.5 mg daily, Cymbalta 60 mg daily Prior therapy: Fosamax Interval Review of Systems CONSTITUTIONAL: Recent Weight change: No Fever: No EENT: Dryness in eyes: No Dryness of mouth: No Oral ulcers: No CARDIOVASCULAR: Pain in chest: No RESPIRATORY: Shortness of breath: No Cough: No GASTROINTESTINAL: Nausea: No Vomiting: No Changes in bowel movements: No Heartburn: No MUSCULOSKELETAL: Per HPI INTEGUMENTARY: Rash: No NEUROLOGICAL SYSTEM: Headaches: No All other ROS reviewed, pertinent positives in HPI No past medical history on file. PAST SURGICAL HISTORY Procedure Laterality Date FINGER SURGERY HX Bilateral KNEE SURGERY HX Bilateral scope TX INGROWN TOENAIL removal History Review: I have reviewed and modified as needed, the following during this visit: Allergies, Past Medical History, Past Surgical History, Past Family History, Past Social History. Physical Exam BP 121/81 Pulse 106 Wt 93 kg (205 lb) BMI 31.17 kg/m GENERAL: Well appearing, alert, comfortable, in no acute distress, well-hydrated, well nourished. HEENT: Negative for external ears normal. Canals are clear. Eye Exam normal. External nose normal, no nasal ulcer or throat ulcer. NECK: NECK Supple, no adenopathy CARDIAC: regular rate and rhythm, No murmur asculated., and Equal peripheral pulses RESPIRATORY: Lungs clear to auscultation. No wheezing, rhonchi, rales NEURO: Motor and sensory exam normal MOTOR: Normal; including tone, gait, stressed gait, power and coordination. SKIN: Negative for alopecia, skin rash, malar rash, skin lesion, skin ulcer, pits, thickening, color changes, telangiectasias, nail changes, nail ridging, nail pitting, onycholysis MUSCULOSKELETAL: no tenderness or synovitis; left 4th digit amputated distal to the PIP Recent Lab Results: No results found for: WBC , RBC , HB , HCT , PLT No results found for: CREAT , CA , ALKPHOS , AST , ALT Recent Radiology Results: No recent imaging Assessment / Plan: (M06.4) Inflammatory polyarthropathy (HCC) (primary encounter diagnosis) (M15.9) Generalized osteoarthrosis (Z79.899) Long-term use of Plaquenil The patient is doing very well with his current regimen. He would like to discontinue prednisone. Will taper off. Can consider decreasing Plaquenil if he is doing well in 3 months. Patient will contact the office if he would like to decrease the dose at that time. Recent eye exam done. Labs ordered for monitoring for medication toxicity. Patient advised to contact the clinic with questions. 1. Discussed the above in detail with the patient. All questions were answered. 2. Meds: taper off prednisone - every other day x 2 weeks then stop 3. Testing: CBC, CMP, ESR, CRP ordered 4. Contact the clinic with concerns 5. Follow up: [address] Mahmood 6. Compliance with labs and follow ups encouraged Mariya Sarkar PA-C __ Dr. Mahmood last OV note reviewed: Assessment and Plan First visit 12/2016 Inflammatory polyarthropathy Summer 2016 joint pain started 09/30 RF negative, Uric acid 4.1 mg.dl wbc normal, CMP normal ESR 9 mm cbc normal CRP 1.33 mg/dl normal < 0.80 mg/dl 04/03/2020 ESR 11 crp 8.68 mgL RF CCP negative TREATMENT Prednisone helped a lot given by 60 mg 5 days. 2016, flare 01/17/17 prednisone 30 mg 5 days given ( had knee and ankle pain and swelling) : felt lot better 11/20/2019 pred 2.5 mg 2 pill + fosamax 35 03/24/2020 stop fosamax, cut back on pred to 2.5 mg 03/2020 OFF plaquenil 200 bid every day 12/2016 started, 02/2019 last optha Lot better keep on same, see him back in 6 months. 04/2019 refilll med 12/29/2020 FLARED UP, I think will resume prednisone 2.5 and fosamax ( do not use NSAId on him, coronary artery disease ) 07/01/21 get xr to see if CPPD changes, at present , not clear if RA. But symptoms controlled on current med (( PLANS IS TO NOT STOP MEDICINE TILL HE RETIRES )) 01/06/2022 OK to stop fosamax once runs out. Fibromyalgia : No use of lyrica, , gabapentin. 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 Chronic neck pain mild 12/27/2016 will observe for now . Mid back pain 12/27/2016 observe for now. Chronic low back pain 2006 moderate Degenerative disc disease L4L5, L3L4, prominent osteophytes [id number] Symptoms suggestive of spinal stenosis, ( claudication is there, but normal bowel bladder issue ) TREATMENT 05/21/2019 Surgery advised. 2004 refused by patient. 07/05 cymbalta and better 01/06/2022 03/24/2020 right side ileotibial band OK for exercise. Degenerative arthritis shoulder bilateral observe Right >> left ( pain while sleep) 05/21/2019 observe Degenerative arthritis hand observe Degenerative arthritis knees bilateral arthroscopic surgery done. 12/27/2016 observe. CTS symptoms 2017 onset 07/01/21 ( worse in am and gets better as day goes by ) ( only at night ) 07/01/21 get NCS if moderate severe send for surg 01/06/2022 EMG postponed work related Foot pain 12/31 foot Xray left small plantar calcaneal spur 12/31 right mild foot mid food Degenerative changes 1st MTP Degenerative changes COPD : must stop smoking coronary artery disease 2 [place] stent HTN hyperlipidemia 12/27/2016 should ideally not be on NSAID, but job issue difficult to manage overall. Sleep deprivation? Goes to bed 7.30 takes him one hour to fall asleep, using 2 tylenol pm up 4 times to pee. Toss and turn, has to take 15 min to go back to sleep. 12/27/2016 may need to see urology or PCP to address and prostate issues. Pain mgt: ( indication low back pain, Inflammatory polyarthropathy and generalized OA ) Motrin 200 mg 2, using tyelnol pm 2 of them at night, does not use any medication am. [place] given by [facility], 09/30 no relief. (( DO NOT USE ANY NSAID ) cymabalta 60 mg 07/01/21 ( some improvement no side effects 0 01/06/2022 Brief Personal and family history: ( no sex drive since [place] ) 07/01/21 Coffee am, not after that. 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 Requested Prescriptions Pending Prescriptions Disp Refills hydrOXYchloroQUINE (PLAQUENIL) 200 mg tablet [Pharmacy Med Name: hydroxychloroquine 200 mg tablet] 180 tablet 0 Sig: take 1 tablet by mouth twice daily Patient last appointment: 01/06/2022 Next Appointment: 04/26/2023 Patient Phone numbers: [phone] (home) Request is for script(s) to be escript to pharmacy. Tamiko Pina MA Not seen since 12/2021, but has an upcoming appointment. documented in this encounter [facility] 03-28-2023 Miscellaneous Notes Pharmacy faxed requesting the following refill. Patient needs to schedule a follow up appointment. A 6 month follow up was ordered at his 01/06/22 appointment. Requested Prescriptions Pending Prescriptions Disp Refills predniSONE (DELTASONE) 2.5 mg tablet [Pharmacy Med Name: prednisone 2.5 mg tablet] 90 tablet 0 Sig: take 1 tablet by mouth every day Patient last appointment: 01/06/2022 Next Appointment: no appointment scheduled Patient Phone numbers: [phone] (home) Request is for script(s) to be escript to pharmacy. Linda Bullock MA documented in this encounter [facility] 12-21-2022 Miscellaneous Notes Patient scheduled with Mariya in January. Rupali Nixon Last appt was 12/2021 and has no f/u appt Need f/u appt? If so, let administrative assistant front desk know. Pharmacy faxed requesting the following refill. Requested Prescriptions Pending Prescriptions Disp Refills DULoxetine (CYMBALTA) 60 mg capsule [Pharmacy Med Name: duloxetine 60 mg capsule,delayed release] 90 capsule 1 Sig: Take 1 capsule by mouth once daily. Patient last appointment: 01/06/2022 Next Appointment: Visit date not found Patient Phone numbers: [phone] (home) Request is for script(s) to be escript to pharmacy. Dileep Membreno MA documented in this encounter [facility] 11-08-2022 Miscellaneous Notes Last appt was 12/2021 and has no f/u appt Need f/u appt? If so, let administrative assistant front desk know. Pharmacy faxed requesting the following refill. Requested Prescriptions Pending Prescriptions Disp Refills predniSONE (DELTASONE) 2.5 mg tablet [Pharmacy Med Name: predniSONE Oral Tablet 2.5 MG] 90 tablet 0 Sig: Take 1 tablet by mouth once daily. hydrOXYchloroQUINE (PLAQUENIL) 200 mg tablet [Pharmacy Med Name: Hydroxychloroquine Sulfate Oral Tablet 200 MG] 180 tablet 0 Sig: Take 1 tablet by mouth twice daily. Patient last appointment: 01/06/2022 Next Appointment: Visit date not found Patient Phone numbers: [phone] (home) Request is for script(s) to be escript to pharmacy. Dileep Membreno MA documented in this encounter [facility] 09-20-2022 Miscellaneous Notes Last appt was 12/2021 and has no f/u appt Need f/u appt? If so, let administrative assistant front desk know. Pharmacy faxed requesting the following refill. Requested Prescriptions Pending Prescriptions Disp Refills DULoxetine (CYMBALTA) 60 mg capsule [Pharmacy Med Name: duloxetine 60 mg capsule,delayed release] 90 capsule 0 Sig: Take 1 capsule by mouth once daily. Patient last appointment: 01/06/2022 Next Appointment: Visit date not found Patient Phone numbers: [phone] (home) Request is for script(s) to be escript to pharmacy. Dileep Membreno MA documented in this encounter [facility] 08-16-2022 Miscellaneous Notes Last appt was 12/2021 and has no f/u appt Need f/u appt? If so, let administrative assistant front desk know. Pharmacy faxed requesting the following refill. Requested Prescriptions Pending Prescriptions Disp Refills predniSONE (DELTASONE) 2.5 mg tablet [Pharmacy Med Name: predniSONE Oral Tablet 2.5 MG] 30 tablet 2 Sig: Take 1 tablet by mouth once daily. Patient last appointment: 01/06/2022 Next Appointment: Visit date not found Patient Phone numbers: [phone] (home) Request is for script(s) to be escript to pharmacy. Dileep Membreno MA documented in this encounter [facility] 06-21-2022 Miscellaneous Notes Pharmacy faxed requesting the following refill. Requested Prescriptions Pending Prescriptions Disp Refills DULoxetine (CYMBALTA) 60 mg capsule [Pharmacy Med Name: duloxetine 60 mg capsule,delayed release] 90 capsule 0 Sig: Take 1 capsule by mouth once daily. Patient last appointment: 01/06/2022 Next Appointment: 07/07/2022 Patient Phone numbers: [phone] (home) Request is for script(s) to be escript to pharmacy. Dileep Membreno MA documented in this encounter [facility] 03-22-2022 Miscellaneous Notes Pharmacy faxed requesting the following refill. Requested Prescriptions Pending Prescriptions Disp Refills DULoxetine (CYMBALTA) 60 mg capsule [Pharmacy Med Name: duloxetine 60 mg capsule,delayed release] 90 capsule 0 Sig: Take 1 capsule by mouth once daily. Patient last appointment: 01/06/2022 Next Appointment: 07/07/2022 Patient Phone numbers: [phone] (home) Request is for script(s) to be escript to pharmacy. Dileep Membreno MA documented in this encounter [facility] 02-23-2022 Miscellaneous Notes Pt questioning if he is to stop alendronate? Madai William LPN documented in this encounter [facility] 02-16-2022 Miscellaneous Notes Alendronate discontinued at last appt Please remove duplicate plaquenil rx in the chart from 12/2016 Pharmacy faxed requesting the following refill. Requested Prescriptions Pending Prescriptions Disp Refills alendronate (FOSAMAX) 35 mg tablet [Pharmacy Med Name: alendronate 35 mg tablet] 12 tablet 0 Sig: Take 1 tablet by mouth one time a week. In AM with cup of water on empty stomach. Nothing else by mouth and stay upright for 30 min. predniSONE (DELTASONE) 2.5 mg tablet [Pharmacy Med Name: prednisone 2.5 mg tablet] 30 tablet 5 Sig: Take 1 tablet by mouth once daily. hydrOXYchloroQUINE (PLAQUENIL) 200 mg tablet [Pharmacy Med Name: hydroxychloroquine 200 mg tablet] 180 tablet 1 Sig: TAKE 1 TABLET BY MOUTH TWICE DAILY Patient last appointment: 12/29/2020 Next Appointment: 07/07/2022 Patient Phone numbers: [phone] (home) Request is for script(s) to be escript to pharmacy. Dileep Membreno MA documented in this encounter [facility] 01-05-2022 History of Present illness Narrative This note was created using NoteWriter. Subjective Ani Valentine is a 61 year old male. Not to bad CTS eased up Not bad 3 times since last 6 months Knee pain at present Low back pain all the time and used to it Over all good Not as bad as before No side effect with cymbalta Review of Systems Objective Blood Pressure 122/87 Pulse 94 Temperature 36.7 C (98.1 F) Height 172.7 cm (5' 8 ) Weight 86.6 kg (191 lb) Body Mass Index 29.04 kg/m Physical Exam Vitals reviewed. Constitutional: General: He is not in acute distress. Appearance: He is not ill-appearing or toxic-appearing. Cardiovascular: Rate and Rhythm: Normal rate and regular rhythm. Heart sounds: Normal heart sounds. No murmur heard. No friction rub. No gallop. Pulmonary: Effort: No respiratory distress. Breath sounds: No stridor. No wheezing or rhonchi. Abdominal: General: There is no distension. Palpations: Abdomen is soft. There is no mass. Tenderness: There is no abdominal tenderness. Hernia: No hernia is present. Musculoskeletal: Right shoulder: Normal. Left shoulder: Normal. Right elbow: Normal. Left elbow: Normal. Right wrist: Normal. Left wrist: Normal. Right hand: Normal. Left hand: Normal. Cervical back: No rigidity or tenderness. Thoracic back: Normal. Lumbar back: Decreased range of motion. Right hip: Normal. Left hip: Normal. Right knee: Normal. Left knee: Normal. Right ankle: Normal. Left ankle: Normal. Right foot: Normal. Left foot: Normal. Comments: Dip pip enlargement 1st cmc enlargement Knee crepitus Lymphadenopathy: Cervical: No cervical adenopathy. Skin: Findings: No rash. Assessment and Plan First visit 12/2016 Inflammatory polyarthropathy Summer 2016 joint pain started 09/30 RF negative, Uric acid 4.1 mg.dl wbc normal, CMP normal ESR 9 mm cbc normal CRP 1.33 mg/dl normal < 0.80 mg/dl 04/03/2020 ESR 11 crp 8.68 mgL RF CCP negative TREATMENT Prednisone helped a lot given by 60 mg 5 days. 2017, flare 01/17/17 prednisone 30 mg 5 days given ( had knee and ankle pain and swelling) : felt lot better 11/20/2019 pred 2.5 mg 2 pill + fosamax 35 03/24/2020 stop fosamax, cut back on pred to 2.5 mg 03/2020 OFF plaquenil 200 bid every day 12/2016 started, 02/2019 last optha Lot better keep on same, see him back in 6 months. 04/2019 refilll med 12/29/2020 FLARED UP, I think will resume prednisone 2.5 and fosamax ( do not use NSAId on him, coronary artery disease ) 07/01/21 get xr to see if CPPD changes, at present , not clear if RA. But symptoms controlled on current med (( PLANS IS TO NOT STOP MEDICINE TILL HE RETIRES )) 01/06/2022 OK to stop fosamax once runs out. Fibromyalgia : No use of lyrica, , gabapentin. 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 Chronic neck pain mild 12/27/2016 will observe for now . Mid back pain 12/27/2016 observe for now. Chronic low back pain 2007 moderate Degenerative disc disease L4L5, L3L4, prominent osteophytes T11T12 Symptoms suggestive of spinal stenosis, ( claudication is there, but normal bowel bladder issue ) TREATMENT 05/21/2019 Surgery advised. 2004 refused by patient. 07/05 cymbalta and better 01/06/2022 03/24/2020 right side ileotibial band OK for exercise. Degenerative arthritis shoulder bilateral observe Right >> left ( pain while sleep) 05/21/2019 observe Degenerative arthritis hand observe Degenerative arthritis knees bilateral arthroscopic surgery done. 12/27/2016 observe. CTS symptoms 2017 onset 07/01/21 ( worse in am and gets better as day goes by ) ( only at night ) 07/01/21 get NCS if moderate severe send for surg 01/06/2022 EMG postponed work related Foot pain 12/31 foot Xray left small plantar calcaneal spur 12/31 right mild foot mid food Degenerative changes 1st MTP Degenerative changes COPD : must stop smoking coronary artery disease 2 [place] stent HTN hyperlipidemia 12/27/2016 should ideally not be on NSAID, but job issue difficult to manage overall. Sleep deprivation? Goes to bed 7.30 takes him one hour to fall asleep, using 2 tylenol pm up 4 times to pee. Toss and turn, has to take 15 min to go back to sleep. 12/27/2016 may need to see urology or PCP to address and prostate issues. Pain mgt: ( indication low back pain, Inflammatory polyarthropathy and generalized OA ) Motrin 200 mg 2, using tyelnol pm 2 of them at night, does not use any medication am. [place] given by [facility], 09/30 no relief. (( DO NOT USE ANY NSAID ) cymabalta 60 mg 07/01/21 ( some improvement no side effects 0 01/06/2022 Brief Personal and family history: ( no sex drive since [place] ) 07/01/21 Coffee am, not after that. 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 Requested Prescriptions Pending Prescriptions Disp Refills DULoxetine (CYMBALTA) 60 mg capsule [Pharmacy Med Name: duloxetine 60 mg capsule,delayed release] 90 capsule 0 Sig: Take 1 capsule by mouth once daily. hydrOXYchloroQUINE (PLAQUENIL) 200 mg tablet [Pharmacy Med Name: hydroxychloroquine 200 mg tablet] 180 tablet 0 Sig: Take 1 tablet by mouth twice daily. Patient last appointment: 07/01/2021 Next Appointment: 01/06/2022 Patient Phone numbers: [phone] (home) Request is for script(s) to be escript to pharmacy. Dileep Membreno MA documented in this encounter [facility] 11-23-2021 Miscellaneous Notes Pharmacy faxed requesting the following refill. Requested Prescriptions Pending Prescriptions Disp Refills alendronate (FOSAMAX) 35 mg tablet [Pharmacy Med Name: alendronate 35 mg tablet] 12 tablet 0 Sig: Take 1 tablet by mouth one time a week. In AM with cup of water on empty stomach. Nothing else by mouth and stay upright for 30 min. Patient last appointment: 12/29/2020 Next Appointment: 01/06/2022 Patient Phone numbers: [phone] (home) Request is for script(s) to be escript to pharmacy. Dileep Membreno MA documented in this encounter [facility] 10-20-2021 Miscellaneous Notes Noted Marko Mahmood MD documented in this encounter [facility] 09-23-2021 Miscellaneous Notes Patient called requesting the following refill. Requested Prescriptions Pending Prescriptions Disp Refills hydrOXYchloroQUINE (PLAQUENIL) 200 mg tablet 180 tablet 0 Sig: Take 1 tablet by mouth twice daily. Patient last appointment: 07/01/2021 Next Appointment: 10/08/2021 Patient Phone numbers: [phone] (home) Request is for script(s) to be escript to pharmacy. Madai William LPN documented in this encounter [facility] 07-01-2021 History of Present illness Narrative This note was created using [employer]. Subjective Ani Valentine is a 60 year old male. Left knee pain severe Left wrist pain Had used splint on this elastic At present pain has eased up Not with any side effect with current med No sob chest pains Back pain is there 06/09 Not on any med Review of Systems Objective Blood Pressure 116/68 Pulse 86 Temperature 36.8 C (98.2 F) (Temporal) Height 172.7 cm (5' 8 ) Weight 92.5 kg (204 lb) Body Mass Index 31.02 kg/m Physical Exam Vitals reviewed. Constitutional: General: He is not in acute distress. Appearance: Normal appearance. He is not ill-appearing or toxic-appearing. Cardiovascular: Rate and Rhythm: Normal rate and regular rhythm. Heart sounds: Normal heart sounds. No murmur heard. No friction rub. No gallop. Pulmonary: Effort: No respiratory distress. Breath sounds: Normal breath sounds. No stridor. No wheezing or rhonchi. Abdominal: General: There is no distension. Palpations: Abdomen is soft. There is no mass. Tenderness: There is no abdominal tenderness. Hernia: No hernia is present. Musculoskeletal: Right shoulder: Normal. Left shoulder: Normal. Right elbow: Normal. Left elbow: Normal. Right wrist: Normal. Left wrist: Normal. Right hand: Normal. Left hand: Normal. Cervical back: No rigidity or tenderness. Thoracic back: Normal. Lumbar back: Normal. Right hip: Normal. Left hip: Normal. Right knee: Normal. Left knee: Normal. Right ankle: Normal. Left ankle: Normal. Right foot: Normal. Left foot: Normal. Comments: Knee exam no swelling Wrist tender bilateral Mild dip pip enlargement no swelling Lymphadenopathy: Cervical: No cervical adenopathy. Neurological: Mental Status: He is alert. Assessment and Plan First visit 12/2016 Inflammatory polyarthropathy Summer 2016 joint pain started 09/30 RF negative, Uric acid 4.1 mg.dl wbc normal, CMP normal ESR 9 mm cbc normal CRP 1.33 mg/dl normal < 0.80 mg/dl 04/03/2020 ESR 11 crp 8.68 mgL RF CCP negative TREATMENT Prednisone helped a lot given by 60 mg 5 days. 2017, flare 01/17/17 prednisone 30 mg 5 days given ( had knee and ankle pain and swelling) : felt lot better 11/20/2019 pred 2.5 mg 2 pill + fosamax 35 03/24/2020 stop fosamax, cut back on pred to 2.5 mg 03/2020 OFF plaquenil every day 12/2016 started, 02/2019 last optha Lot better keep on same, see him back in 6 months. 04/2019 refilll med 12/29/2020 FLARED UP, I think will resume prednisone and fosamax see him back in 6 months ( do not use NSAId on him, coronary artery disease ) 07/01/21 get xr to see if CPPD changes, at present , not clear if RA. But symptoms controlled on current med (( PLANS IS TO NOT STOP MEDICINE TILL HE RETIRES )) Fibromyalgia : No use of lyrica, cymbalta, gabapentin. 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 Chronic neck pain mild 12/27/2016 will observe for now . Mid back pain 12/27/2016 observe for now. Chronic low back pain 2007 moderate Degenerative disc disease L4L5, L3L4, prominent osteophytes T11T12 Symptoms suggestive of spinal stenosis, ( claudication is there, but normal bowel bladder issue ) TREATMENT 05/21/2019 Surgery advised. 2004 refused by patient. 12/29/2020 just observe for now. ( not on any medicine ) 07/01/21 see if cymbalta helps 03/24/2020 right side ileotibial band OK for exercise. Degenerative arthritis shoulder bilateral observe Right >> left ( pain while sleep) 05/21/2019 observe Degenerative arthritis hand observe Degenerative arthritis knees bilateral arthroscopic surgery done. 12/27/2016 observe. CTS symptoms 2017 onset 07/01/21 ( worse in am and gets better as day goes by ) ( only at night ) 07/01/21 get NCS if moderate severe send for surg Foot pain 12/31 foot Xray left small plantar calcaneal spur 12/31 right mild foot mid food Degenerative changes 1st MTP Degenerative changes COPD : must stop smoking coronary artery disease 2 [place] stent HTN hyperlipidemia 12/27/2016 should ideally not be on NSAID, but job issue difficult to manage overall. Sleep deprivation? Goes to bed 7.30 takes him one hour to fall asleep, using 2 tylenol pm up 4 times to pee. Toss and turn, has to take 15 min to go back to sleep. 12/27/2016 may need to see urology or PCP to address and prostate issues. Pain mgt: ( indication low back pain, Inflammatory polyarthropathy and generalized OA ) Motrin 200 mg 2, using tyelnol pm 2 of them at night, does not use any medication am. [place] given by [facility], 09/30 no relief. (( DO NOT USE ANY NSAID ) cymabalta 60 mg 07/01/21 Brief Personal and family history: ( no sex drive since [place] ) 07/01/21 Coffee am, not after that. 2 daughters Smoking cigars 1/2 pack per day, started age [age] yr Seldom eTOH No Marijuana Job: [employer] ( 12 hour a day at times) (( plans to retire age 67) Laid off after May will resume. 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 Pending Prescriptions Disp Refills HYDROXYCHLOROQUINE 200 MG TABLET 180 tablet 1 Sig: Take 1 tablet by mouth twice daily. DON: No PREDNISONE 2.5 MG TABLET 30 tablet 5 Sig: Take 1 tablet by mouth once daily. DON: No Patient last appointment: 12/29/2020 Next Appointment: 07/01/2021 Patient Phone numbers: [phone] (home) Request is for script(s) to be escript to pharmacy. Madai William LPN documented in this encounter [facility] 12-29-2020 History of Present illness Narrative This note was created using [facility]. Subjective Ani Valentine is a 60 year old male. Morning stiffness is lasting about 30 minutes or less once moving around is fine No jaw pain No neck pain Low back long standing pain Pain in the shoulder Pain in the joint while patient is sleeping. At time full range of motion No pain on overhead Elbow pain bilateral Wrist hand pain Finger feel swollen Right hip pain Pain in knee Pain in the ankles Feet pain All the time pain Worse after stopping prednisone No wt gain on pred Review of Systems Respiratory: Negative. Cardiovascular: Negative. Objective Blood Pressure 124/66 Pulse 94 Temperature 36.8 C (98.2 F) Height 172.7 cm (5' 8 ) Weight 88.1 kg (194 lb 4.8 oz) Body Mass Index 29.54 kg/m Physical Exam Vitals reviewed. Constitutional: General: He is not in acute distress. Appearance: He is not ill-appearing or toxic-appearing. Cardiovascular: Rate and Rhythm: Normal rate and regular rhythm. Heart sounds: Normal heart sounds. No murmur heard. No friction rub. No gallop. Pulmonary: Effort: No respiratory distress. Breath sounds: Normal breath sounds. No stridor. No wheezing or rhonchi. Abdominal: General: There is no distension. Palpations: Abdomen is soft. There is no mass. Tenderness: There is no abdominal tenderness. Hernia: No hernia is present. Musculoskeletal: Right shoulder: Normal. Left shoulder: Normal. Right elbow: Normal. Left elbow: Normal. Right wrist: Normal. Left wrist: Normal. Right hand: Normal. Left hand: Normal. Cervical back: No rigidity or tenderness. Thoracic back: Normal. Lumbar back: Decreased range of motion. Right hip: Normal. Left hip: Normal. Right knee: Normal. Left knee: Normal. Right lower leg: No edema. Left lower leg: No edema. Right ankle: Normal. Left ankle: Normal. Right foot: Normal. Left foot: Normal. Comments: Pain in the wrist wrist tender Tender at MTP joints No clear synovitis in the hand joints. Lymphadenopathy: Cervical: No cervical adenopathy. Neurological: Mental Status: He is alert. Deep Tendon Reflexes: Reflexes normal. Psychiatric: Mood and Affect: Mood normal. Behavior: Behavior normal. Thought Content: Thought content normal. Judgment: Judgment normal. Assessment and Plan First visit 12/2016 Polyarthralgia Inflammatory polyarthropathy Summer 2016 joint pain started 09/30 RF negative, Uric acid 4.1 mg.dl wbc normal, CMP normal ESR 9 mm cbc normal CRP 1.33 mg/dl normal < 0.80 mg/dl 04/03/2020 ESR 11 crp 8.68 mgL RF CCP negative TREATMENT Prednisone helped a lot given by 60 mg 5 days. 2017, flare 01/17/17 prednisone 30 mg 5 days given ( had knee and ankle pain and swelling) : felt lot better 11/20/2019 pred 2.5 mg 2 pill + fosamax 35 03/24/2020 stop fosamax, cut back on pred to 2.5 mg 03/2020 OFF plaquenil every day 12/2016 started, 02/2019 last optha Lot better keep on same, see him back in 6 months. 04/2019 refilll med 12/29/2020 FLARED UP, I think will resume prednisone and fosamax see him back in 6 months ( do not use NSAId on him, coronary artery disease ) Fibromyalgia : No use of lyrica, cymbalta, gabapentin. 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 Chronic neck pain mild 12/27/2016 will observe for now . Mid back pain 12/27/2016 observe for now. Chronic low back pain 2007 moderate Degenerative disc disease L4L5, L3L4, prominent osteophytes T11T12 Symptoms suggestive of spinal stenosis, ( claudication is there, but normal bowel bladder issue ) TREATMENT 05/21/2019 Surgery advised. 2004 refused by patient. 12/29/2020 just observe for now. 03/24/2020 right side ileotibial band OK for exercise. Degenerative arthritis shoulder bilateral observe Right >> left ( pain while sleep) 05/21/2019 observe Degenerative arthritis hand observe Degenerative arthritis knees bilateral arthroscopic surgery done. 12/27/2016 observe. Foot pain 12/31 foot Xray left small plantar calcaneal spur 12/31 right mild foot mid food Degenerative changes 1st MTP Degenerative changes COPD : must stop smoking coronary artery disease 2 [place] stent HTN hyperlipidemia 12/27/2016 should ideally not be on NSAID, but job issue difficult to manage overall. Sleep deprivation? Goes to bed 7.30 takes him one hour to fall asleep, using 2 tylenol pm up 4 times to pee. Toss and turn, has to take 15 min to go back to sleep. 12/27/2016 may need to see urology or PCP to address and prostate issues. Pain mgt: Motrin 200 mg 2, using tyelnol pm 2 of them at night, does not use any medication am. [place] given by [facility], 09/30 no relief. (( DO NOT USE ANY NSAID ) Brief Personal and family history: Coffee am, not after that. 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 Pending Prescriptions Disp Refills HYDROXYCHLOROQUINE 200 MG TABLET 180 tablet 1 Sig: Take 1 tablet by mouth twice daily. DON: No Patient last appointment: 03/24/2020 Next Appointment: 12/29/2020 Patient Phone numbers: [phone] (home) Request is for script(s) to be escript to pharmacy. Danuta Aggarwal MA documented in this encounter [facility] Diagnosis Inflammatory polyarthropathy (HCC) Unspecified inflammatory polyarthropathy [facility] Diagnosis Inflammatory polyarthropathy (HCC) Unspecified inflammatory polyarthropathy [facility] Diagnosis Carpal tunnel syndrome, bilateral- Primary Carpal tunnel syndrome Inflammatory polyarthropathy (HCC) Unspecified inflammatory polyarthropathy Generalized osteoarthrosis Generalized osteoarthrosis, unspecified site Chronic bilateral low back pain without sciatica [facility] Diagnosis Inflammatory polyarthropathy (HCC) Unspecified inflammatory polyarthropathy [facility] Diagnosis Generalized osteoarthrosis Generalized osteoarthrosis, unspecified site Inflammatory polyarthropathy (HCC) Unspecified inflammatory polyarthropathy [facility] Diagnosis Inflammatory polyarthropathy (HCC)- Primary Unspecified inflammatory polyarthropathy Chronic bilateral low back pain without sciatica [facility] Diagnosis Inflammatory polyarthropathy (HCC) Unspecified inflammatory polyarthropathy [facility] Diagnosis Generalized osteoarthrosis Generalized osteoarthrosis, unspecified site [facility] Diagnosis Generalized osteoarthrosis Generalized osteoarthrosis, unspecified site [facility] Diagnosis Inflammatory polyarthropathy (HCC) Unspecified inflammatory polyarthropathy [facility] Diagnosis Generalized osteoarthrosis Generalized osteoarthrosis, unspecified site [facility] Diagnosis Inflammatory polyarthropathy (HCC)- Primary Unspecified inflammatory polyarthropathy Generalized osteoarthrosis Generalized osteoarthrosis, unspecified site Long-term use of Plaquenil Encounter for long-term (current) use of other medications documented in this encounter [facility] for referral (narrative)* Outpatient Procedure (Routine) - Pending Review Specialty Diagnoses / Procedures Referred By Rm t Referred To Contact [facility] Diagnoses Carpal tunnel syndrome, bilateral Procedures EMG NERVE COND DOUG UPPER EXTR NDL EMG 2 XTR W/WO RELATED PARASPINAL AREAS Marko Mahmood MD [address] [address] Neu[facility] [place] [address] [place] [address] Referral ID Status Reason Start Date Expiration Date Visits Requested Visits Authorized [id number] Pending Review Auto-Generat ed Referral 07/01/2021 07/01/2022 1 1 * Diagnostic Procedure Only (Routine) - Pending Review Specialty Diagnoses / Procedures Referred By Rm german Referred To Contact XR IMAGING Diagnoses Inflammatory polyarthropathy (HCC) Procedures XR HAND GENERAL 3V PA/LAT/OBL RIGHT RADEX HAND MINIMUM 3 VIEWS Marko Mahmood MD [address] [address] Xr Imaging Referral ID Status Reason Start Date Expiration Date Visits Requested Visits Authorized [id number] Pending Review Auto-Generat ed Referral 07/01/2021 07/31/2022 1 1 * Diagnostic Procedure Only (Routine) - Pending Review Specialty Diagnoses / Procedures Referred By Rm t Referred To Contact XR IMAGING Diagnoses Inflammatory polyarthropathy (HCC) Procedures XR HAND GENERAL 3V PA/LAT/OBL LEFT RADEX HAND MINIMUM 3 VIEWS Marko Mahmood MD [address] [address] Xr Imaging Referral ID Status Reason Start Date Expiration Date Visits Requested Visits Authorized [id number] Pending Review Auto-Generat ed Referral 07/01/2021 07/31/2022 1 1 [facility] Summary Purpose Family History No Family History Records FoundNo Family History Records FoundNo Family History Records Found Advance Directives No Advanced Directives Records FoundNo Advanced Directives Records FoundNo Advanced Directives Records Found History of Present Illness * Marko Mahmood - 11/27/2019 7:20 AM EDT The patient did not show for this appointment. Marko Mahmood MD documented in this encounter* Marko Mahmood - 03/24/2020 11:15 AM EST This note was created using [facility]. Subjective Ani Valentine is a 59 year old male. Right knee pain Right hip pain Worse on driving Has to keep moving around Few week No massage Usually when driving No other pain Patient with no new onset headaches, jaw claudication, abnormal tongue sensation, scalp tenderness,or episodes of diplopia or visual loss. Is not running any low grade fevers etc. Review of Systems Constitutional: Negative for fatigue. Objective Blood Pressure 107/78 Pulse 106 Temperature 36.9 C (98.5 F) (Temporal) Height 172.7 cm (5' 8 ) Weight 93 kg (205 lb) Body Mass Index 31.17 kg/m Physical Exam Assessment and Plan First visit 12/2016 Polyarthralgia Inflammatory polyarthropathy Summer 2016 joint pain started 09/30 RF negative, Uric acid 4.1 mg.dl wbc normal, CMP normal ESR 9 mm cbc normal CRP 1.33 mg/dl normal < 0.80 mg/dl TREATMENT Prednisone helped a lot given by 60 mg 5 days. 2017, flare 01/17/17 prednisone 30 mg 5 days given ( had knee and ankle pain and swelling) : felt lot better 11/20/2019 pred 2.5 mg 2 pill + fosamax 35 03/24/2020 stop fosamax, cut back on pred to 2.5 mg plaquenil every day 12/2016 started, 02/2019 last optha Lot better keep on same, see him back in 6 months. 04/2019 refilll med 03/24/2020 see him in 6 months . Fibromyalgia : No use of lyrica, cymbalta, gabapentin. 12/27/2016 tender point exam is negative doubt Fibromyalgia TREATMENT Chronic neck pain mild 12/27/2016 will observe for now . Mid back pain 12/27/2016 observe for now. Chronic low back pain 2007 moderate Degenerative disc disease L4L5, L3L4, prominent osteophytes T11T12 Symptoms suggestive of spinal stenosis, ( claudication is there, but normal bowel bladder issue ) TREATMENT 05/21/2019 Surgery advised. 2004 refused by patient. 04/2019 observe Lumbar radiculopathy , PT if gets worse prednisone 20 mg for flare. 03/24/2020 right side ileotibial band OK for exercise. Degenerative arthritis shoulder bilateral observe Right >> left ( pain while sleep) 05/21/2019 observe Degenerative arthritis hand observe Degenerative arthritis knees bilateral arthroscopic surgery done. 12/27/2016 observe. Foot pain 12/31 foot Xray left small plantar calcaneal spur 12/31 right mild foot mid food Degenerative changes 1st MTP Degenerative changes COPD : must stop smoking coronary artery disease 2 [place] stent HTN hyperlipidemia 12/27/2016 should ideally not be on NSAID, but job issue difficult to manage overall. Sleep deprivation? Goes to bed 7.30 takes him one hour to fall asleep, using 2 tylenol pm up 4 times to pee. Toss and turn, has to take 15 min to go back to sleep. 12/27/2016 may need to see urology or PCP to address and prostate issues. Pain mgt: Motrin 200 mg 2, using tyelnol pm 2 of them at night, does not use any medication am. [place] given by [facility], 09/30 no relief. Brief Personal and family history: Coffee am, not after that. 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 Subjective Ani Valentine is a 58 year old male. HPI Review of Systems Objective There were no vitals taken for this visit. Physical Exam Assessment and Plan First visit 12/2016 Polyarthralgia Inflammatory polyarthropathy Summer 2016 joint pain started 09/30 RF negative, Uric acid 4.1 mg.dl wbc normal, CMP normal ESR 9 mm cbc normal CRP 1.33 mg/dl normal < 0.80 mg/dl TREATMENT Prednisone helped a lot given by 60 mg 5 days. 2016, flare 01/17/17 prednisone 30 mg 5 days given ( had knee and ankle pain and swelling) : felt lot better plaquenil bid 12/2016 started, 02/2019 last optha Lot better keep on same, see him back in 6 months. 04/2019 refilll med Fibromyalgia : No use of lyrica, cymbalta, gabapentin. 12/27/2016 tender point exam is negative doubt Fibromyalgia TREATMENT Chronic neck pain mild 12/27/2016 will observe for now . Mid back pain 12/27/2016 observe for now. Chronic low back pain 2006 moderate Degenerative disc disease L4L5, L3L4, prominent osteophytes T11T12 Symptoms suggestive of spinal stenosis, ( claudication is there, but normal bowel bladder issue ) TREATMENT 05/21/2019 Surgery advised. 2004 refused by patient. 04/2019 observe Lumbar radiculopathy , PT if gets worse prednisone 20 mg for flare. Degenerative arthritis shoulder bilateral observe Right >> left ( pain while sleep) 05/21/2019 observe Degenerative arthritis hand observe Degenerative arthritis knees bilateral arthroscopic surgery done. 12/27/2016 observe. Foot pain 12/31 foot Xray left small plantar calcaneal spur 12/31 right mild foot mid food Degenerative changes 1st MTP Degenerative changes COPD : must stop smoking coronary artery disease 2 [place] stent HTN hyperlipidemia 12/27/2016 should ideally not be on NSAID, but job issue difficult to manage overall. Sleep deprivation? Goes to bed 7.30 takes him one hour to fall asleep, using 2 tylenol pm up 4 times to pee. Toss and turn, has to take 15 min to go back to sleep. 12/27/2016 may need to see urology or PCP to address and prostate issues. Pain mgt: Motrin 200 mg 2, using tyelnol pm 2 of them at night, does not use any medication am. [place] given by [facility], 09/30 no relief. Brief Personal and family history: Coffee am, not after that. 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 Marko Mahmood MD documented in this encounter* Marko Mahmood - 11/20/2019 3:07 PM EDT This note was created using [employer]. Subjective Ani Valentine is a 58 year old male. Not dong good Writs hand Ankle knee Back shoulder Used prednisone and was dong better, not able to function Morning stiffness is lasting about 30 minutes to one hour. Gelling Cannot hardly move Towards afternoon is getting worse. Using aleve but not aleve. Feet and ankle swelling No Diabetes Mellitus Type II Review of Systems Constitutional: Positive for fatigue. Respiratory: Negative. Cardiovascular: Negative. Objective There were no vitals taken for this visit. Physical Exam Assessment and Plan First visit 12/2016 Polyarthralgia Inflammatory polyarthropathy Summer 2016 joint pain started 09/30 RF negative, Uric acid 4.1 mg.dl wbc normal, CMP normal ESR 9 mm cbc normal CRP 1.33 mg/dl normal < 0.80 mg/dl TREATMENT Prednisone helped a lot given by 60 mg 5 days. 2017, flare 01/17/17 prednisone 30 mg 5 days given ( had knee and ankle pain and swelling) : felt lot better 11/20/2019 pred 2.5 mg 2 pill + fosamax 35 plaquenil bid 12/2016 started, 02/2019 last optha Lot better keep on same, see him back in 6 months. 04/2019 refilll med Patient explained risk of corticosteroid treatment in detail, including but not limited to worsening of blood sugar, osteoporosis, myopathy, increased risk of infection, cataract, glaucoma, osteonecrosis of bone leading to need for joint replacement of shoulder hip etc. Other side effects peptic ulcer disease, mental disturbances, weight gain, acnes discussed. Patient explained should not use NSAID along with prednisone as higher risk of gastrointestinal bleed is there. Should take prednisone in am as can cause insomnia. Patient verbalized understanding. Explained the need for bisphosphonate prophylaxis if on pronged course of prednisone or on high doses of prednisone. Fibromyalgia : No use of lyrica, cymbalta, gabapentin. 12/27/2016 tender point exam is negative doubt Fibromyalgia TREATMENT Chronic neck pain mild 12/27/2016 will observe for now . Mid back pain 12/27/2016 observe for now. Chronic low back pain 2007 moderate Degenerative disc disease L4L5, L3L4, prominent osteophytes T11T12 Symptoms suggestive of spinal stenosis, ( claudication is there, but normal bowel bladder issue ) TREATMENT 05/21/2019 Surgery advised. 2004 refused by patient. 04/2019 observe Lumbar radiculopathy , PT if gets worse prednisone 20 mg for flare. Degenerative arthritis shoulder bilateral observe Right >> left ( pain while sleep) 05/21/2019 observe Degenerative arthritis hand observe Degenerative arthritis knees bilateral arthroscopic surgery done. 12/27/2016 observe. Foot pain 12/31 foot Xray left small plantar calcaneal spur 12/31 right mild foot mid food Degenerative changes 1st MTP Degenerative changes COPD : must stop smoking coronary artery disease 2 [place] stent HTN hyperlipidemia 12/27/2016 should ideally not be on NSAID, but job issue difficult to manage overall. Sleep deprivation? Goes to bed 7.30 takes him one hour to fall asleep, using 2 tylenol pm up 4 times to pee. Toss and turn, has to take 15 min to go back to sleep. 12/27/2016 may need to see urology or PCP to address and prostate issues. Pain mgt: Motrin 200 mg 2, using tyelnol pm 2 of them at night, does not use any medication am. [place] given by [facility], 09/30 no relief. Brief Personal and family history: Coffee am, not after that. 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 It required patient-provider interaction for the medical decision making as documented below. Cannot be originating from a related evaluation and management service provided within 7 days. Cannot be used if an evaluation and management service or procedure is planned in next 24 hours. Total time spent and type of encounter: 10 min documented in this encounter Assessments Diagnosis NO SHOW- Primary Diagnosis Inflammatory polyarthropathy (HCC)- Primary Unspecified inflammatory polyarthropathy Diagnosis Inflammatory polyarthropathy (HCC) Unspecified inflammatory polyarthropathy Additional Source Comments (unrecognized sect ion and content) No Status Records FoundNo Status Records FoundNo Status Records Found INFORMATION SOURCE (unrecogn ized section and content) DATE CREATED AUTHOR AUTHOR'S ORGANIZ ATION 04/28/2018 [facility] DATE CREATED AUTHOR AUTHOR'S ORGANIZ ATION 04/27/2023 [facility] Source Comments (unrecognize d section and content) In the event this informatio n is protected by the Federal Confidentiality of Alcohol and Drug Abuse Patient Records regulations: The Federal rules restrict any use of the information to criminally investigate or prosecute any alcohol or drug abuse patient.[facility] the event this information is protected by the Federal Confidentiality of Alcohol and Drug Abuse Patient Records regulations: The Federal rules restrict any use of the information to criminally investigate or prosecute any alcohol or drug abuse patient.[facility] Center[facility] the event this information is protected by the Federal Confidentiality of Alcohol and Drug Abuse Patient Records regulations: The Federal rules restrict any use of the information to criminally investigate or prosecute any alcohol or drug abuse patient.[facility] Center[facility] the event this information is protected by the Federal Confidentiality of Alcohol and Drug Abuse Patient Records regulations: The Federal rules restrict any use of the information to criminally investigate or prosecute any alcohol or drug abuse patient.[facility] Center[facility] the event this information is protected by the Federal Confidentiality of Alcohol and Drug Abuse Patient Records regulations: The Federal rules restrict any use of the information to criminally investigate or prosecute any alcohol or drug abuse patient.[facility] Center[facility] the event this information is protected by the Federal Confidentiality of Alcohol and Drug Abuse Patient Records regulations: The Federal rules restrict any use of the information to criminally investigate or prosecute any alcohol or drug abuse patient.[facility] the event this information is protected by the Federal Confidentiality of Alcohol and Drug Abuse Patient Records regulations: The Federal rules restrict any use of the information to criminally investigate or prosecute any alcohol or drug abuse patient.[facility] CenterIn the event this information is protected by the Federal Confidentiality of Alcohol and Drug Abuse Patient Records regulations: The Federal rules restrict any use of the information to criminally investigate or prosecute any alcohol or drug abuse patient.[facility] Center[facility] the event this information is protected by the Federal Confidentiality of Alcohol and Drug Abuse Patient Records regulations: The Federal rules restrict any use of the information to criminally investigate or prosecute any alcohol or drug abuse patient.[facility] CenterIn the event this information is protected by the Federal Confidentiality of Alcohol and Drug Abuse Patient Records regulations: The Federal rules restrict any use of the information to criminally investigate or prosecute any alcohol or drug abuse patient.[facility] Center[facility] the event this information is protected by the Federal Confidentiality of Alcohol and Drug Abuse Patient Records regulations: The Federal rules restrict any use of the information to criminally investigate or prosecute any alcohol or drug abuse patient.[facility] CenterIn the event this information is protected by the Federal Confidentiality of Alcohol and Drug Abuse Patient Records regulations: The Federal rules restrict any use of the information to criminally investigate or prosecute any alcohol or drug abuse patient.[facility] Center[facility] the event this information is protected by the Federal Confidentiality of Alcohol and Drug Abuse Patient Records regulations: The Federal rules restrict any use of the information to criminally investigate or prosecute any alcohol or drug abuse patient.[facility] Center[facility] the event this information is protected by the Federal Confidentiality of Alcohol and Drug Abuse Patient Records regulations: The Federal rules restrict any use of the information to criminally investigate or prosecute any alcohol or drug abuse patient.[facility] CenterIn the event this information is protected by the Federal Confidentiality of Alcohol and Drug Abuse Patient Records regulations: The Federal rules restrict any use of the information to criminally investigate or prosecute any alcohol or drug abuse patient.[facility] CenterIn the event this information is protected by the Federal Confidentiality of Alcohol and Drug Abuse Patient Records regulations: The Federal rules restrict any use of the information to criminally investigate or prosecute any alcohol or drug abuse patient.[facility] Center[facility] the event this information is protected by the Federal Confidentiality of Alcohol and Drug Abuse Patient Records regulations: The Federal rules restrict any use of the information to criminally investigate or prosecute any alcohol or drug abuse patient.[facility] Center[facility] the event this information is protected by the Federal Confidentiality of Alcohol and Drug Abuse Patient Records regulations: The Federal rules restrict any use of the information to criminally investigate or prosecute any alcohol or drug abuse patient.[facility] Center[facility] the event this information is protected by the Federal Confidentiality of Alcohol and Drug Abuse Patient Records regulations: The Federal rules restrict any use of the information to criminally investigate or prosecute any alcohol or drug abuse patient.[facility] CenterIn the event this information is protected by the Federal Confidentiality of Alcohol and Drug Abuse Patient Records regulations: The Federal rules restrict any use of the information to criminally investigate or prosecute any alcohol or drug abuse patient.[facility] CenterIn the event this information is protected by the Federal Confidentiality of Alcohol and Drug Abuse Patient Records regulations: The Federal rules restrict any use of the information to criminally investigate or prosecute any alcohol or drug abuse patient.[facility] CenterIn the event this information is protected by the Federal Confidentiality of Alcohol and Drug Abuse Patient Records regulations: The Federal rules restrict any use of the information to criminally investigate or prosecute any alcohol or drug abuse patient.[facility] CenterIn the event this information is protected by the Federal Confidentiality of Alcohol and Drug Abuse Patient Records regulations: The Federal rules restrict any use of the information to criminally investigate or prosecute any alcohol or drug abuse patient.[facility] CenterIn the event this information is protected by the Federal Confidentiality of Alcohol and Drug Abuse Patient Records regulations: The Federal rules restrict any use of the information to criminally investigate or prosecute any alcohol or drug abuse patient.[facility] CenterIn the event this information is protected by the Federal Confidentiality of Alcohol and Drug Abuse Patient Records regulations: The Federal rules restrict any use of the information to criminally investigate or prosecute any alcohol or drug abuse patient.[facility] CenterIn the event this information is protected by the Federal Confidentiality of Alcohol and Drug Abuse Patient Records regulations: The Federal rules restrict any use of the information to criminally investigate or prosecute any alcohol or drug abuse patient.[facility] CenterIn the event this information is protected by the Federal Confidentiality of Alcohol and Drug Abuse Patient Records regulations: The Federal rules restrict any use of the information to criminally investigate or prosecute any alcohol or drug abuse patient.[facility] Reason for Visit (unrecogniz ed section and content) Reason Comments Pain Reason Comments Pain rt knee,rt hip Reason Onset Date Comments No Show 11/21/2019 Reason Comments Joint Pain Reason Comments Refill Request Reason Comments Pain knees,ankles Reason Onset Date Comments Refill Request 11/11/2020 Reason Onset Date Comments Refill Request 06/25/2021 Reason Onset Date Comments Refill Request 09/23/2021 Reason Comments Patient Update Could not complete t est Reason Comments Patient Question Reason Comments Follow Up Telephone Encounter - Ginette Man) - 12/13/2019 3:18 PM EDTAddendum Note - Marko Mahmood - 12/13/2019 3:01 PM EDTTelephone Encounter - Marko Mahmood - 12/13/2019 3:00 PM EDT Miscellaneous Notes (unrecog nized section and content) Patient notified & states understanding. Donovan Peng CMA Addended by: MARKO MAHMOOD MD on: 12/13/2019 03:01 PM Modules accepted: Orders Ginette Man MA / Jasen Tipton MA please advise him to use 2.5 mg 2 pills am Discuss more next visit Marko Mahmood MD Patient left message stating that he is taking the prednisone 2.5 daily & the fosamax weekly & is still in a lot of pain. States he had higher dose of the prednisone in the past & that seemed to help. Wants to know what else can be done for his pain. Donovan Peng CMA documented in this encounter Pharmacy faxed requesting the following refill. Pending Prescriptions Disp Refills HYDROXYCHLOROQUINE 200 MG TABLET 180 tablet 1 Sig: TAKE 1 TABLET BY MOUTH TWICE DAILY DON: Yes Patient last appointment: 03/24/2020 Next Appointment: 09/22/2020 Patient Phone numbers: [phone] (home) Request is for script(s) to be escript to pharmacy. Donovan Peng CMA documented in this encounter Care Teams (unrecognized sec tion and content) Crop Puller Relationship Specialty Start Date End Date Beth Guzman, DO [address] [place] [address] PCP - General Family Practice 12/27/16 Crop Puller Relationship Specialty Start Date End Date Beth Guzman, DO [address] [place] [address] PCP - General Family Practice 12/27/16 Crop Puller Relationship Specialty Start Date End Date Beth Guzman, [place] [address] PCP - General Family Practice 12/27/16 Crop Puller Relationship Specialty Start Date End Date Beth Guzman, DO [address] [place] [address] PCP - General Family Medicine 12/27/16 Crop Puller Relationship Specialty Start Date End Date Beth Guzman, DO [address] [place] [address] PCP - General Family Medicine 12/27/16 Crop Puller Relationship Specialty Start Date End Date Beth Guzman, DO [address] [place] [address] PCP - General Family Medicine 12/27/16 Crop Puller Relationship Specialty Start Date End Date Beth Guzman, DO [address] [place] [address] PCP - General Family Medicine 12/27/16 Crop Puller Relationship Specialty Start Date End Date Beth Guzman DO [address] [place] [address] PCP - General Family Medicine 12/27/16 Crop Puller Relationship Specialty Start Date End Date Beth Guzman DO [address] [place] [address] PCP - General Family Medicine 12/27/16 Crop Puller Relationship Specialty Start Date End Date Beth Guzman DO [address] [place] [address] PCP - General Family Medicine 12/27/16 Crop Puller Relationship Specialty Start Date End Date Beth Guzman DO [address] [place] [address] PCP - General Family Medicine 12/27/16 Crop Puller Relationship Specialty Start Date End Date Beth Guzman DO [address] [place] [address] PCP - General Family Medicine 12/27/16 Crop Puller Relationship Specialty Start Date End Date Beth Guzman DO [address] [place] [address] PCP - [facility] 12/27/16 Crop Puller Relationship Specialty Start Date End Date Beth Guzman DO [address] [place] [address] PCP - [facility] 12/27/16 Crop Puller Relationship Specialty Start Date End Date Beth Guzman DO [address] [place] [address] PCP - [facility] 12/27/16 FOR RECORDS PERTAINING TO PATIENTS WHO ARE OR HAVE BEEN ENROLLED IN A CHEMICAL DEPENDENCY/SUBSTANCEABUSE PROGRAM, SOME INFORMATION MAY BE OMITTED. This clinical summary was aggregated from multiple sources. Caution should be exercised in using it in the provision of clinical care. This summary normalizes information from multiple sources, and as a consequence, information in this document may materially change the coding, format and clinical context of patient data. In addition, data may be omitted in some cases. CLINICAL DECISIONS SHOULD BE BASED ON THE PRIMARY CLINICAL RECORDS. [facility]. provides no warranty or guarantee of the accuracy or completeness of information in this document.
[2023-04-29 08:13] LABS: Absolute Lymphocyte Count 1.12 X10^3/uL (0.83-4.51); Absolute Neutrophil Count 4.4 X10^3/uL (2.0-7.7); Basophil# 0.06 X10^3/uL; Basophil% 0.9 % (0-1); Eosinophil# 0.26 X10^3/uL; Hematocrit 48.6 % (40-54); Hemoglobin 15.6 g/dL (13.0-16.5); Lymphocyte # 1.12 X10^3/ul (0.83-4.51); Lymphocyte % 17.3 % (19-41); Mean Corp Hgb Conc 32.1 g/dL (32-36); Mean Corpuscular Hgb 30.4 pg (27.0-32.0); Mean Corpuscular Volume 94.6 fL (80-94); Mean Platelet Vol. 9.3 fl (6.2-12.0); Monocyte# 0.67 X10^3/uL; Monocyte% 10.3 % (0-10); NRBC Flagged by Analyzer 0 % (0-5); Neutrophil # 4.36 X10^3/uL (2.7-7.7); Neutrophil % 67.2 % (47-70); Platelet Count 242 K/mm3 (150-450); RBC Distribution Width CV 12.3 % (11.6-14.6); Red Blood Count 5.14 M/mm3 (4.6-6.2); White Blood Count 6.5 K/mm3 (4.4-11.0)
[2023-04-29 08:46] LABS: Erythrocyte Sedimentation Rate 4 mm/hr (0-20)
[2023-04-29 08:52] LABS: AST(SGOT) 17 U/L (15-37); Alanine Aminotransfer ALT/SGPT 26 U/L (16-61); Albumin, Serum 3.7 g/dL (3.2-5.0); Alkaline Phosphatase 116 U/L (45-117); Anion Gap 2 (5-15); BUN 17 mg/dL (7-18); BUN/Creat Ratio 13.5 RATIO (10-20); Calcium,Total 8.9 mg/dL (8.5-10.1); Chloride 110 mmol/L (98-107); Creatinine, Serum 1.26 mg/dL (0.70-1.30); EST Glomerular Filtration Rate 61 mL/min (>60); Est Glom Filt Rate - Afr Amer 74 mL/min (>60); Globulin 3.7 g/dL (2.2-4.2); Glucose 91 mg/dL (74-106); Potassium 4.2 mmol/L (3.5-5.1); Protein, Total 7.4 g/dL (6.4-8.2); Sodium Level 140 mmol/L (136-145)
== END | disposition home or self-care (01) ==
LOC: LAB 07:33
PROVIDERS: PCP Nurse Practitioner Family
DX: M06.4 Inflammatory polyarthropathy (principal); M15.9 Polyosteoarthritis, unspecified; Z79.899 Other long term (current) drug therapy
CPT/HCPCS: 36415; 80053; 85025; 85652; 86140

== ENCOUNTER → 2024-01-17 | Outpatient (CLI) | payer MEDICARE, SELFPAY ==
--- NOTE | 2024-01-19 12:49 | STRESSREP ---
Stress Test Report Date: 01/17/2024 Procedure: Pharmacologic stress nuclear imaging study Indications: CAD Consent: Per the patient Procedure: The patient underwent pharmacologic (Regadenoson 0.4mg ) evaluation with a peak heart rate of 121 beats per minute (70%predicted maximal heart rate) and a peak blood pressure of 132/80 mmHg. The baseline ECG demonstrated sinus rhythm. The peak pharmacologic ECG demonstrated no ischemic change. There were no cardiac dysrhythmias pretest, during pharmacologic infusion, or recovery. There was no complaint of chest discomfort during pharmacologic infusion or recovery. The patient was injected with 14.1 millicuries of technetium 99m Cardiolite and subsequently rest SPECT Cardiolite nuclear imaging was obtained in the horizontal long, vertical long, and short axis views. The patient underwent pharmacologic (Regadenoson) evaluation. The patient was injected with 43.8 millicuries of technetium 99m Cardiolite and subsequently stress SPECT Cardiolite nuclear imaging was obtained in the horizontal long, vertical long, and short axis views. A gated Cardiolite study at peak stress was obtained. The examination was stopped secondary to completion of protocol. Rest and stress SPECT Cardiolite nuclear imaging status post realignment, normalization, and attenuation correction demonstrate no fixed or reversible perfusion defects. There is end systolic thickening and brightening. The gated Cardiolite study demonstrates myocardial thickening and inward wall motion. The reported LVEF is 58%. Impression: 1. Pharmacologic (Regadenoson) evaluation 2. Peak pharmacologic ECG with no ischemic changes. 3. There were no cardiac dysrhythmias pretest, during pharmacologic infusion, or recovery. 5. Rest and stress SPECT Cardiolite nuclear imaging demonstrate relative uniform tracer uptake and myocardial perfusion appearing within normal limits. 6. The gated Cardiolite study reports an LVEF of 58%. This note was generated with Smart [employer] software. It may contain incorrect words, spelling, and punctuation that were not noted in checking the note before signing.
== END | disposition home or self-care (01) ==
LOC: CVS 05:55
PROVIDERS: PCP Nurse Practitioner Family; Referring Provider Internal Medicine Cardiovascular Disease; Visit Provider Internal Medicine Cardiovascular Disease
DX: I25.10 Atherosclerotic heart disease of native coronary artery without angina pectoris (principal); I10 Essential (primary) hypertension; F17.200 Nicotine dependence, unspecified, uncomplicated
CPT/HCPCS: 78452; 93017; A9500; A4216; J2785